=== PATIENT | female | born 1945 | race Caucasian/White ===

== ENCOUNTER → 2023-12-20 10:41 | Outpatient (REF) | payer MEDICARE, OTHER, SELFPAY ==
[2023-12-20 15:10] LABS: % Basophils 0.9 % (0-2); % Eosinophils 2.8 % (0-6); % Immature Granulocytes 0.5 % (0-0.5); % Lymphocytes 19.7 % (20.5-51.1); % Monocytes 6.4 % (1.7-9.3); % Neutrophils 69.7 % (42.2-75.2); Absolute Basophils 0.1 10^3/uL (0-0.2); Absolute Eosinophils 0.2 10^3/uL (0-0.7); Absolute Lymphocytes 1.5 10^3/uL (1.2-3.4); Absolute Monocytes 0.5 10^3/uL (0.1-0.6); Absolute Neutrophils 5.2 10^3/uL (1.4-6.5); Hematocrit 44.2 % (37.0-47.0); Hemoglobin 14.9 g/dL (12.0-16.0); Mean Corp Hgb Conc. 33.7 g/dL (33.0-37.0); Mean Corpuscular Hgb 32.9 pg (27.0-31.0); Mean Corpuscular Volume 97.6 fL (81.0-99.0); Mean Platelet Volume 10.2 fL (7.4-10.4); Nucleated Red Blood Cells % 0 %; Platelet Count 256 10^3/uL (130-400); Red Blood Cell Count 4.53 10^6/uL (4.20-5.40); Red Cell Dist. Width 13.7 % (11.5-14.5); White Blood Cell Count 7.5 10^3/uL (4.8-10.8)
[2023-12-20 15:30] LABS: ALT (SGPT) 14 U/L (0-35); AST (SGOT) 26 U/L (14-36); Alkaline Phosphatase 77 U/L (38-126); Blood Urea Nitrogen 16 mg/dl (7-17); Calcium 9.9 mg/dl (8.4-10.2); Carbon Dioxide 26 mmol/L (22-30); Chloride 104 mmol/L (98-107); Glucose 99 mg/dl (70-99); Potassium 4.6 mmol/L (3.5-5.1); Sodium 138 mmol/L (135-145); Total Protein 6.6 g/dl (6.3-8.2); Uric Acid 6.5 mg/dl (2.5-6.2); eGFR > 60.00
[2023-12-20 15:58] LABS: TSH Reflex To Free T4 1.97 uIU/ml (0.47-4.68)
== END ==
LOC: WDC 10:41
PROVIDERS: ATTENDING PHYSICIAN Student in an Organized Health Care Education/Training Program
DX: Z12.31 Encounter for screening mammogram for malignant neoplasm of breast (principal); R42 Dizziness and giddiness; R53.83 Other fatigue; R01.1 Cardiac murmur, unspecified; Z87.39 Personal history of other diseases of the musculoskeletal system and connective tissue
CPT/HCPCS: 36415; 80053; 84443; 84550; 85025

== ENCOUNTER → 2024-01-10 14:24 | Outpatient (REF) | payer MEDICARE, OTHER, SELFPAY | LOC: RCS 14:24 | PROVIDERS: ATTENDING PHYSICIAN Student in an Organized Health Care Education/Training Program | DX: R42 Dizziness and giddiness (principal) | CPT/HCPCS: 93306 ==

== ENCOUNTER → 2025-02-03 17:39 | Outpatient (REF) | payer MEDICARE, OTHER, SELFPAY | LOC: RAD 17:39 | PROVIDERS: ATTENDING PHYSICIAN Internal Medicine | DX: S90.02XA Contusion of left ankle, initial encounter (principal); S86.912A Strain of unspecified muscle(s) and tendon(s) at lower leg level, left leg, initial encounter; W19.XXXA Unspecified fall, initial encounter | CPT/HCPCS: 73564; 73610 ==

== ENCOUNTER 2025-04-28 16:40 | Inpatient (IN) | payer MEDICARE, OTHER, SELFPAY ==
[2025-04-28] VITALS (10 sets, daily range): BP systolic 150–189; BP diastolic 74–140
--- NOTE | 2025-04-28 14:24 | ED.MUSCINJ ---
HPI-Injury
<Nakia Valentine EXPERIENCE DESIGN DIRECTOR - Last Filed: 04/28/25 15:57>
General
Chief Complaint: Fall
Source: patient and spouse
Exam Limitations: none
Time Seen by Provider: 04/28/25 14:00
Nursing documentation reviewed up to this point in time: agreed with
History of Present Illness-Injury
Is this injury a work related problem?: No
Is pt an associate of [facility]?: No
Initial Injury comments:
Patient seen emergency department after trip and fall in the store today. She states she was trying to get her cane out of the cart and tripped on the carpet. She reports hitting her head on the ground. No LOC. She denies taking any blood
thinners. she complains of pain to her right hip. Brought to the emergency department by spouse. Incident occurred just BUSINESS CONSULTANT.
Past History
<Nakia Valentine EXPERIENCE DESIGN DIRECTOR - Last Filed: 04/28/25 15:57>
Past History
ED Past Medical History: GERD and HTN
ED Past Surgical History: Appendectomy, Bowel resection, Gynecological, Orthopedic and Tonsilectomy
Social History
Tobacco: Former smoker
Personal:
Living: with family
Employment: Retired
Review of Systems
<Nakia Valentine EXPERIENCE DESIGN DIRECTOR - Last Filed: 04/28/25 15:57>
Review of Systems
Allergies reviewed?: Yes
All Other Systems: ROS reviewed and negative except as documented in HPI and ROS
Constitutional: Reports no symptoms
EENT: Reports no symptoms
Respiratory: Reports no symptoms
Cardiac: Reports no symptoms
ABD/GI: Reports no symptoms
: Reports no symptoms
Musculoskeletal: Reports joint pain (Pain to right hip)
Skin: Reports no symptoms
Neurological: Reports no symptoms
Psychiatric: Reports no symptoms
Musculoskeletal Injury Exam
<Nakia Valentine NP - Last Filed: 04/28/25 15:57>
Musculoskeletal Injury Exam
Right Hip:
Pain with Movement?: Moderate
Tender to palpation?: Moderate
Soft tissue swelling?: None
External deformity and angulation?: None
Joint effusion?: None
Contusion?: Moderate
Hematoma-local bleeding into tissue?: None
Strain- Sprain- Tear (Connective tissue injury)?: Moderate
Crepitus with movement?: No
Joint instability?: No
Malalignment/deformity?: No
Range of motion: Limited
Distal skin color and temperature: normal-warm & good color
Capillary Refill: normal
Normal distal neurovascular exam?: Yes
Peripheral Pulses: posterior tibial (right): 3+ and dorsalis pedis (right): 3+
Phy Exam
<Nakia Valentine NP - Last Filed: 04/28/25 15:57>
General Physical Exam
General Presentation: moderate distress
General age: appears stated age
General Skin: warm and dry
General Habitus: normal
General Mental: alert
Cardiovascular Exam
Cardiovascular Exam: regular rate/rhythm and no edema
Pulmonary Exam
Pulmonary Exam: no respiratory distress and chest non tender
Gastrointestinal Exam
Gastrointestinal Exam: non tender and soft
Neurological Exam
Neurological Exam: alert, oriented x3, CN II-XII intact, no motor deficits, no sensory deficits and speech normal
Musculoskeletal Exam
Musculoskeletal Exam: neuro vasc intact and other (Pain to right anterior hip. No bruising or swelling noted. Leg is not shortened, it is not radiating. Unable to move her leg due to pain)
Skin Exam
Skin Exam: normal color, warm/dry and no rash
Psychiatric Exam
Psychiatric Exam: normal mood/affect
Injury Course
<Nakia Valentine NP - Last Filed: 04/28/25 15:57>
Orders/Labs/Results
Orders:
Orders
04/28/25 13:49
CT Head W/o Iv Contrast Urgent
Comment:
Reason For Exam: fall hit head
Hip, Right 2-3 Views [CR Hip - RT w/wo Pel 2-3 Vw*] Urgent
Comment:
Reason For Exam: right hip pain
Include a pelvis x-ray?: Yes
04/28/25 14:42
Urinalysis Reflex To Culture Urgent
HYDROmorphone [Dilaudid] 0.25 mg IV NOW STA
Ondansetron Injectable [Zofran] 4 mg IV NOW STA
04/28/25 15:18
Complete Blood Count/With Diff Urgent
Comprehensive Metabolic Panel Urgent
Abnormal Lab Results
04/28/25
15:18
WBC 12.2 H 10^3/uL
(4.8-10.8)
RBC 3.99 L 10^6/uL
(4.20-5.40)
MCV 102.5 H fL
(81.0-99.0)
MCH 33.3 H pg
(27.0-31.0)
MCHC 32.5 L g/dL
(33.0-37.0)
Abs Immat Gran (auto) 0.1 H 10^3/uL
(0-0.05)
Absolute Neuts (auto) 10.4 H 10^3/uL
(1.4-6.5)
Absolute Lymphs (auto) 0.9 L 10^3/uL
(1.2-3.4)
Absolute Monos (auto) 0.7 H 10^3/uL
(0.1-0.6)
Immature Gran % 0.7 H %
(0-0.5)
Neutrophils % 85.3 H %
(42.2-75.2)
Lymphocytes % 7.5 L %
(20.5-51.1)
Glucose 113 H mg/dl
(70-99)
04/28/25 15:18
04/28/25 15:18
<Chichi Blayne, DO - Last Filed: 04/28/25 15:57>
Orders/Labs/Results
Orders:
Orders
04/28/25 13:49
CT Head W/o Iv Contrast Urgent
Comment:
Reason For Exam: fall hit head
Hip, Right 2-3 Views [CR Hip - RT w/wo Pel 2-3 Vw*] Urgent
Comment:
Reason For Exam: right hip pain
Include a pelvis x-ray?: Yes
04/28/25 14:42
Urinalysis Reflex To Culture Urgent
HYDROmorphone [Dilaudid] 0.25 mg IV NOW STA
Ondansetron Injectable [Zofran] 4 mg IV NOW STA
04/28/25 15:18
Complete Blood Count/With Diff Urgent
Comprehensive Metabolic Panel Urgent
Abnormal Lab Results
04/28/25
15:18
WBC 12.2 H 10^3/uL
(4.8-10.8)
RBC 3.99 L 10^6/uL
(4.20-5.40)
MCV 102.5 H fL
(81.0-99.0)
MCH 33.3 H pg
(27.0-31.0)
MCHC 32.5 L g/dL
(33.0-37.0)
Abs Immat Gran (auto) 0.1 H 10^3/uL
(0-0.05)
Absolute Neuts (auto) 10.4 H 10^3/uL
(1.4-6.5)
Absolute Lymphs (auto) 0.9 L 10^3/uL
(1.2-3.4)
Absolute Monos (auto) 0.7 H 10^3/uL
(0.1-0.6)
Immature Gran % 0.7 H %
(0-0.5)
Neutrophils % 85.3 H %
(42.2-75.2)
Lymphocytes % 7.5 L %
(20.5-51.1)
Glucose 113 H mg/dl
(70-99)
04/28/25 15:18
04/28/25 15:18
<Nakia Valentine NP - Last Filed: 04/28/25 15:57>
*Radiology
Radiology exam reviewed: radiology read reviewed
*Pulse Oximetry
SaO2: 94
Oxygen Mode of Delivery: Room air
Patient hypoxic: no
*Critical Care Note
Total Time (30-74mins, 75-104mins- exclusive of procedures): Not Applicable
<Nakia Valentine NP - Last Filed: 04/28/25 15:57>
Update Note
Update Note:
Patient seen emergency department after a trip and fall at the store today. Complains of pain to right hip, unable to bear weight. X-ray confirms right hip fracture. Dr. Castro consulted and will plan for surgery tomorrow. This was discussed
with patient and family. Patient will be admitted to the hospitalist service.
ED Attending Note
<Nakia Valentine NP - Last Filed: 04/28/25 15:57>
-
Portions of this chart may have been created with voice recognition software.� Occasional wrong word or��sound alike� substitutions may have occurred due to the inherent limitations of voice recognition software.
<Chcihi Cisneros DO - Last Filed: 04/28/25 15:57>
ED Attending Note
Patient seen and examined by attending physician: Yes
I performed the substantive portion of visit, reviewed & personally made and approve the management plan that is documented in note by myself or LOUIS.: Yes
I performed a history and physical exam of patient and discussed management with resident, I reviewed resident's note and agree with documented findings and plan of care.: Yes
ED Attending Note:
80-year-old female presenting to the emergency department after a fall at the store prior to arrival. Patient arrives to the hospital with right hip pain. Does note that she also struck her head. She has not any blood thinners. She has not been
able to ambulate since the fall. Family notes issues with ambulation at baseline, often has to use a cane. Patient denies numbness or tingling to her leg. Denies any additional injuries. Vital signs are significant for high blood pressure.
On exam, patient is in no acute distress. No signs of head trauma. Awake, alert, oriented. Slight shortening of the right lower extremity comparison to the left with limited range of motion secondary to pain. Distal sensation and pulses intact.
Patient seen and examined by nurse practitioner prior to my assessment, with CT of the head obtained as well as x-ray of the right hip. CT brain negative, however x-ray of the hip is concerning for acute hip fracture. Case discussed with
orthopedics. Plan for operative management. Family is aware as well as patient. Plan for admission
Discharge Plan
Departure
Patient Disposition: Admit
Date of Disposition: 04/28/25
Time of Disposition: 15:30
Presentation/result/management discussed w/ accepting MD/DO: Hospitalist
Patient with high blood pressure during this ER visit?: No
Condition: Fair
Covid-19: Not Applicable
Discharge Problem:
Closed fracture of right hip
Prescriptions:
No Action
pantoprazole 40 MG tablet,delayed release (DR/EC)
40 mg PO DAILYPRN PRN (Reason: GERD)
amoxicillin-pot clavulanate 1 TABLET tablet
1 tab PO Q12 12 Days Qty: 24 0RF
Rx Instructions:
next dose 11/08 PM
Referrals:
UNKNOWN - PT DOES,NOT KNOW [Family Provider]
Interventions
Interventions:
*Risk Screen - Suicide Last Done: 04/28/25 13:46
*General Assessment Last Done: 04/28/25 13:46
*Neglect/Abuse Screening Last Done: 04/28/25 13:46
*ED- Fall Risk Assessment Last Done: 04/28/25 13:46
*ED COVID-19 Vaccine History Last Done: 04/28/25 13:46
*ED Influenza Vaccine History Last Done: 04/28/25 13:46
ED-Musculoskeletal Assessment Last Done: 04/28/25 14:03
ED- Neurological Assessment Last Done: 04/28/25 14:03
ED-Skin Assessment Last Done: 04/28/25 14:03
Discharge Date and Time
Print Language: CAMBODIAN
[2025-04-28] MEDS: DILAUDID 0.25 MG IV (15:16)
[2025-04-28] MEDS: ZOFRAN 4 MG IV ×2 (15:16→22:03)
[2025-04-28 15:50] LABS: ALT (SGPT) 18 U/L (0-35); AST (SGOT) 25 U/L (14-36); Albumin 3.8 g/dl (3.5-5.0); Alkaline Phosphatase 92 U/L (38-126); Blood Urea Nitrogen 13 mg/dl (7-17); Calcium 9.7 mg/dl (8.4-10.2); Carbon Dioxide 27 mmol/L (22-30); Chloride 107 mmol/L (98-107); Estimated Creatinine Clearance 58 ml/min; Glucose 113 mg/dl (70-99); Potassium 4.4 mmol/L (3.5-5.1); Sodium 138 mmol/L (135-145); Total Protein 6.4 g/dl (6.3-8.2); eGFR > 60.00
[2025-04-28 15:53] LABS: Hematocrit 40.9 % (37.0-47.0); Hemoglobin 13.3 g/dL (12.0-16.0); Mean Corp Hgb Conc. 32.5 g/dL (33.0-37.0); Mean Corpuscular Volume 102.5 fL (81.0-99.0); Nucleated Red Blood Cells % 0 %; Platelet Count 246 10^3/uL (130-400); Red Cell Dist. Width 13.2 % (11.5-14.5)
--- NOTE | 2025-04-28 16:04 | HPS.HSE ---
Addendum entered and electronically signed by Debra Jimenez MD 04/28/25 18:40:
Attestation: Patient was seen and examined by me, case was discussed with Dr. Crespo, I reviewed her H&P and agree with the findings as documented except as listed below.
80 F w/HTN, GERD, anxiety/depression, daily alcohol use, p/w hip pain after mechanical fall. Patient hit her head, denies LOC or prodromal symptoms. Found to have acute right hip fracture.
Denies history of CAD, lung disease, CVA, VTE, DM, CKD, CHF.
BP 172/95, other VSS. Patient is wearing 2 L O2, currently O2 sat 94%.
Labs WBC 12.2, MCV 102.5, GLU 113, otherwise WNL
CTh: WNL
Hip x-ray: There is an acute right subcapital hip fracture. There is 1.7 cm superior displacement of the femoral shaft.. There is mild bilateral SI joint sclerosis. There is moderate sclerosis of the acetabulum bilaterally.
PE�
Gen: In distress from pain
HEENT: PERRLA, EOMI, MMM, neck supple
Cards: RRR, +murmur
Resp: Lungs CTAB, no W/R/R
GI: soft, NT/ND/NABS
MSK: No edema, right leg foreshortened, tender, able to move feet and toes, distal pulses intact
Skin: warm and dry, no rash, ulcer or lesions
Heme: No LAD
Psych: Calm
Neuro: AAOx3
A/P:
Right hip subcapital displaced fracture�plan for OR with orthopedics in a.m. N.p.o. after midnight. Pain control with IV Dilaudid and p.o. oxycodone. Monitor for over�sedation
Preoperative risk stratification: RCRI 0. Check EKG for baseline. Otherwise can proceed to OR with no further testing. NSQIP shows risk for delirium due to alcohol use, STOP-BANG 6, high risk for NIMCO, will need close monitoring in PACU, possibly
CPAP.
HTN: BP uncontrolled. Noncompliant with home HTN meds, losartan 25 tonight, hold in a.m., resume postop when needed
Review outpatient PCP records for home meds
Alcohol use: Risk for withdrawal, alcohol withdrawal protocol ordered. Thiamine/folate.
Suspected NIMCO: Continue oxygen as needed, outpatient sleep study
Heart murmur: Check against outpatient PCP records, has echo 12/2023, normal LVEF, stage I diastolic dysfunction, no valvular disease.
DNR
Original Note:
Family Physician
-
Family Physician: Carlene Gallegos MD, PhD
Chief Complaint
-
Mechanical fall, right hip pain
History of Present Illness
80-year-old female with essential hypertension not on any medications, anxiety/depression not compliant with medications, alcohol use disorder, former smoker, GERD presents to the ER for evaluation of mechanical fall. In the afternoon patient tried
to find her cane to get up and walk, and the edge of the cane stand was caught under the carpet and she tripped on the carpet and and fell down on the floor. She admits to fall forward and hitting her head, this is her fifth fall in the last 1
year, and family states that she was recommended to use walker following third fall but patient was noncompliant. She complains of chronic low back pain for which she takes ibuprofen about 2-3 times a day at 400 to 600 mg, currently she does not
have any acute low back pain, she did not have urinary retention, bowel or bladder incontinence, perianal anesthesia. She denies syncope or near syncopal episodes in the past or today.
Her baseline physical activity is less than 3 METS and she is partially dependent for her activities of daily living at home.
Medical History
Past Medical History
Past Medical History: Reports GERD, HTN and Other (Anxiety, alcohol use disorder)
Past Surgical History: Reports Other
Social History
Tobacco: Former Smoker (63-awtx-teim smoking history, quit smoking 6 years ago)
Alcohol: Daily (2 hard glasses of vodka a day every day, sometimes up to 3.)
Drug: None
Personal:
Living: With Family
Employment: Retired
Family History
Family History: Not pertinent
Allergies / Home Medications
Allergies reflects when Allergies were last updated in [facility].
Home Medications with original date entered in [facility]
Allergy/Medication List:
Allergies
Allergy/AdvReac Type Severity Reaction Status Date / Time
aspirin Allergy Stomach Verified 11/05/20 18:51
pain
azithromycin (From Zithromax) Allergy Unknown Verified 11/05/20 18:51
erythromycin base Allergy 'very Verified 11/05/20 18:51
(Erythromycin Base) sick',
vomiting
Sulfa (Sulfonamide Allergy Rash Verified 11/05/20 18:51
Antibiotics)
(Sulfa(Sulfonamide
Antibiotics))
Home Medications
pantoprazole 40 mg tablet,delayed release 40 mg PO DAILYPRN PRN GERD 02/03/25
Sertraline space 25 mg tablet, delayed release p.o. daily for anxiety-02/03/2025.
Review of Systems
-
History Source: Patient
A 12 point ROS was completed and negative except as noted: Yes
Constitutional: Reports Fatigue
EENT: Reports No Symptoms
Respiratory: Reports No Symptoms
Cardiac: Reports No Symptoms
Abdomen/GI: Reports No Symptoms
: Reports No Symptoms
Musculoskeletal: Reports No Symptoms
Skin: Reports No Symptoms
Neurological: Reports No Symptoms
Endocrine: Reports No Symptoms
Hematologic/Lymphatic: Reports No Symptoms
Psych: Reports No Symptoms
Physical Exam
Vital Signs
Vital Signs
Temp Pulse Resp BP Pulse Ox
98.5 F 78 16 172/95 94
04/28/25 13:46 04/28/25 13:46 04/28/25 14:00 04/28/25 13:46 04/28/25 14:25
Physical Exam
General: No Apparent Distress, Comfortable and Other (On 2 L nasal cannula flow.)
HEENT: Moist mucous membranes and PERRLA
Respiratory: Clear; No Wheezes, Rales, Rhonchi or Crackles
Cardiac: S1/S2, Regular Rhythm and Murmur (Systolic 2/6 best heard in aortic area.); No JVD, Carotid Bruits or HJR
GI: Soft, Non Tender, Non Distended and Normal Bowel Sounds
Musculoskeletal: No Clubbing, No Cyanosis and No Edema
Neuro: AO x 3 and No Motor Deficits
Psych: Calm
Laboratory Results
-
04/28/25 15:18
04/28/25 15:18
Laboratory Results
Total Bilirubin 1.0 mg/dl (0.2-1.3) 04/28/25 15:18
AST 25 U/L (14-36) 04/28/25 15:18
ALT 18 U/L (0-35) 04/28/25 15:18
Alkaline Phosphatase 92 U/L (38-126) 04/28/25 15:18
Data Reviewed
-
Ultrasound: Image Personally Visualized and interpreted and Discussed with Physician
Lab Data: Labs Reviewed by me, Discussed with Physician, Discussed with Patient and Discussed with Family
Impression/Plan
-
IMPRESSION: 80-year-old female with PMHx significant for essential hypertension, GERD, anxiety/depression, alcohol use disorder, ambulatory dysfunction, baseline capacity less than 3 METS with partial dependence for activities of daily living
presents to the ER for evaluation of a mechanical fall. She is diagnosed with displaced subcapital right femur fracture
PLAN:
# Right displaced subcapital femur fracture-
s/p mechanical fall, no diagnosis of osteoporosis.
Orthopedics consulted, plan for hip surgery (unsure of the planned procedure yet)
IV Dilaudid and oral oxycodone for pain as needed.
Gentle hydration, EKG for preop evaluation.
Less than 3 METS at baseline.
NSQIP with geriatric outcomes-high risk for postop delirium
Monitor for delirium postop
Outcomes-low risk procedure given minimal comorbidities.
PT and OT consulted.
# Alcohol use disorder-
Last drink in the p.m. yesterday
Has never stopped drinking alcohol, no withdrawals or intoxication in the past.
Started the patient on MSAS protocol. Check magnesium, phosphorus, GGT and blood alcohol levels.
IV diazepam as needed per protocol.
Loading dose of thiamine and folate followed by oral thiamine and folate supplementation ordered.
B CARES consult placed per family's request.
# Hypoventilation likely secondary to pain, currently on 2 L nasal cannula flow.
Wean off oxygen as tolerated, incentive spirometry to prevent postop atelectasis.
Family reported snoring to my supervising attending, concern for undiagnosed NIMCO
Monitor postop.
# Essential hypertension-
Not on any medications, patient discontinued taking her amlodipine on outpatient about 2 years ago.
Average blood pressures in outpatient office 130-140/70-90
Started patient on losartan 25 mg with holding parameters.
Hold losartan on day of surgery (for anesthesia)
# Hyperglycemia on admission-
Check hemoglobin A1c in the a.m.
No history of diabetes.
# Macrocytosis without anemia-
Likely secondary to chronic alcohol use
Folate and thiamine supplementation.
# Leukocytosis-
Likely reactive from inflammation.
# GERD-
On longstanding Protonix outpatient.
Continue Protonix
# Anxiety/depression-
Coping with alcohol
Not compliant with sertraline.
Held sertraline as patient never took it.
# DVT prophylaxis-
Sequential compression devices
# CODE STATUS-
DNR.
Outpatient workup-echocardiogram-
01/10/2024-
Normal left ventricular size, wall thickness and systolic function.
LV ejection fraction is 66% by Miller's method of discs.
Stage I diastolic dysfunction suggestive of abnormal relaxation.
Normal right ventricular size and function.
No significant valvular disease.
No prior study available for comparison.
[2025-04-28] MEDS: DILAUDID 0.5 MG IV ×2 (16:48→22:04)
[2025-04-28] MEDS: ROXICODONE 10 MG PO (19:26)
[2025-04-28] MEDS: TUMS CHEWABLE TABLET 200 MG PO (19:50)
[2025-04-28 19:51] LABS: Urine Character Clear (Clear)
[2025-04-28 20:09] LABS: Urine Urothelial Cell 0-2 /LPF (FEW); Urine White Cell 0-2 /HPF (0-5)
--- NOTE | 2025-04-28 20:40 | PTCARENOTE ---
Pt admitted to 2107 from ED. Pulled over to bed x 3. AAOX3, able to move all extremities. Pt's 2 daughters at bedside. After turning and repositioning pt c/o indigestion and then vomited approx 200 cc brown bile. WAX PUMPER notified for zofran, med given.
prn dilaudid given for 8/10 R hip pain. PW in place for incontinence. MSAS procotol initiated, score 2-3 for nausea/vomiting and tachycardia. Bed alarm on/ active. Call landa within reach.
[2025-04-28] MEDS: THIAMINE INJECTION 200 MG IV (22:12)
[2025-04-28 22:19] LABS: INR 1.00; PT 13.7 Sec (11.4-14.6)
[2025-04-28 22:23] LABS: APTT 25.7 Sec (23.4-35.0); GGTP 25 U/L (12-43); Magnesium 1.6 mg/dl (1.6-2.3)
[2025-04-28] MEDS: FOLVITE PO (22:39)
[2025-04-28] MEDS: FOLVITE 50.2 MG IV (22:46)
[2025-04-29] VITALS (17 sets, daily range): BP systolic 113–177; BP diastolic 69–114
--- NOTE | 2025-04-29 01:02 | PTCARENOTE ---
Pt blood pressure remains high 177/114. HR 100-110s at times. CHRISTI Keith notified. order in for one time dose losartan. med given
[2025-04-29] MEDS: DILAUDID 0.5 MG IV ×4 (01:23→18:10)
[2025-04-29] MEDS: COZAAR 25 MG PO (01:38)
--- NOTE | 2025-04-29 07:00 | W.PN.UPDATE ---
Addendum entered and electronically signed by Abdias Castro MD 04/29/25 15:14:
Patient seen and examined this AM and again this morning with multiple family members present. Explained proposed surgery. Risks, benefits, complications and postop expectations were discussed. The procedure itself was discussed in detail, all
questions were answered. and informed consent was obtained. We discussed that surgery would be on 04/29/2025 as the OR permitted.
Original Note:
Update Note
Progress Note Update
Full orthopedic consult dictated:
Patient unfortunately sustained a displaced right femoral neck fracture and is going to require hemiarthroplasty later today. Surgical location marked and surgical consent signed by patient. She will remain n.p.o., Ancef on-call to the operating
room along with iodine/TXA irrigation as well. Type and screen ordered.
[2025-04-29] MEDS: FOLVITE 1 MG PO (08:17)
[2025-04-29] MEDS: PROTONIX 40 MG PO (08:17)
[2025-04-29] MEDS: THIAMINE INJECTION 200 MG IV ×2 (08:18→19:36)
--- NOTE | 2025-04-29 08:18 | W.PN.HOSP.TC ---
Today's Communication/Plan
-
morning labs
A1C 5%
OR today
monitor post op for delirium and sleep apnea. PT OT postop
Assessment / Plan
Assessment / Plan
80F with HTN, GERD, anxiety/depression, alcohol use disorder, frequent falls, p/w mechanical fall, found to have displaced subcapital right femur fracture.
PLAN:
# Right displaced subcapital femur fracture-
s/p mechanical fall, no diagnosis of osteoporosis.
Orthopedics consulted, plan for hip arthroplasty
IV Dilaudid and oral oxycodone for pain as needed.
reviewed EKG - NSR with no ischemic changes.
high risk for NIMCO monitor in PACU post op, also monitor for postop delirium.
PT and OT post op
# Alcohol use disorder-
Last drink night before admission
Has never stopped drinking alcohol, no withdrawals or intoxication in the past.
Started the patient on MSAS protocol.
IV diazepam as needed per protocol. Far has not received any.
Loading dose of thiamine and folate followed by oral thiamine and folate supplementation ordered.
B CARES consult placed per family's request.
# Hypoventilation likely secondary to pain/NIMCO, currently on 2 L nasal cannula flow.
Wean off oxygen as tolerated, incentive spirometry to prevent postop atelectasis.
STOP-BANG score 6 (high risk NIMCO) - needs outpt sleep study
Monitor postop.
# Essential hypertension-
Not on any medications, patient discontinued taking her amlodipine on outpatient about 2 years ago.
Average blood pressures in outpatient office 130-140/70-90
Started patient on losartan 25 mg with holding parameters.
Hold losartan on day of surgery (for anesthesia)
# Hyperglycemia on admission-
check hemoglobin A1c
No history of diabetes.
# Macrocytosis without anemia-
Likely secondary to chronic alcohol use
Folate and thiamine supplementation.
check CBC -persists
# Leukocytosis-
Likely reactive from inflammation.
Check repeat CBC�WNL, WBC improved to 11.3
# GERD-
On longstanding Protonix outpatient.
Continue Protonix
# Anxiety/depression-
Coping with alcohol
Not compliant with sertraline.
Held sertraline as patient never took it.
# DVT prophylaxis-
Sequential compression devices then lovenox post op
# CODE STATUS-
DNR
Anticipated Discharge: 24 - 48 hours
Subjective/Interval History
-
Date of Service: April 29, 2025
Patient seen in preop area, states she feels a little bit drowsy from the pain meds but otherwise denies any issues.
Objective Data
-
Labs:
Laboratory Results
04/28/25
21:59
PT 13.7
INR 1.00
APTT 25.7
Vital Signs:
Vital Signs
Temp Pulse Resp BP Pulse Ox
97.9 F 110 18 159/84 97
04/29/25 07:45 04/29/25 07:45 04/29/25 07:45 04/29/25 07:45 04/29/25 07:45
I&O
04/28/25 04/29/25 04/30/25
06:59 06:59 06:59
Output Total 150 / 150
Balance -150 / -150
Review of Systems
-
All other systems: Reviewed and negative
Physical Exam
-
General: No Apparent Distress
HEENT: Moist Mucous Membranes, Anicteric and PERRLA
Respiratory: Clear to Auscultation; Negative Wheezes, Rales or Rhonchi
Cardiac: Regular Rhythm, S1/S2 and Murmur; Negative Rub or Gallop
GI: Soft, Nontender, Nondistended and Normal Bowel Sounds
Musculoskeletal: No Edema
Skin: Warm and Dry; Negative Rash, Ulcers or Lesions
Neuro: Awake and AO x 3
Hematologic / Lymphatic: No Lymphadenopathy
Psych: Calm
Data Reviewed
-
Diagnostic Radiology: Image personally visualized and interpreted (Displaced right hip fracture)
Labs: Labs Reviewed by me
[2025-04-29 08:40] LABS: Blood Urea Nitrogen 17 mg/dl (7-17); Calcium 9.3 mg/dl (8.4-10.2); Carbon Dioxide 28 mmol/L (22-30); Chloride 104 mmol/L (98-107); Estimated Creatinine Clearance 51 ml/min; Glucose 97 mg/dl (70-99); Hematocrit 40.5 % (37.0-47.0); Hemoglobin 13.4 g/dL (12.0-16.0); Mean Corp Hgb Conc. 33.1 g/dL (33.0-37.0); Mean Corpuscular Volume 104.7 fL (81.0-99.0); Platelet Count 194 10^3/uL (130-400); Potassium 4.5 mmol/L (3.5-5.1); Red Cell Dist. Width 13.1 % (11.5-14.5); Sodium 136 mmol/L (135-145); eGFR > 60.00
[2025-04-29 09:18] LABS: Glycohemoglobin (HgbA1c) 5.0 % (4.0-5.6)
[2025-04-29] MEDS: DILAUDID 0.25 MG IV (15:29)
--- NOTE | 2025-04-29 16:24 | CM ---
Several attempts made to complete IA today, however pt was in the OR for repair of fx hip. Still in PACU at this time.
[2025-04-29] MEDS: SENOKOT 17.2 MG PO (19:36)
[2025-04-29] MEDS: COLACE 100 MG PO (19:36)
[2025-04-29] MEDS: ANCEF 5 IV (19:36)
[2025-04-29] MEDS: ASPIR LOW (ENTERIC COATED) 81 MG PO (19:36)
[2025-04-29] MEDS: BACTROBAN 2% OINTMENT 1 APPLIC NASAL (19:36)
[2025-04-30] VITALS (12 sets, daily range): BP systolic 110–149; BP diastolic 42–106; PULSE 101
[2025-04-30 00:32] LABS: Glucose - Point of Care 128 mg/dl (70-99)
--- NOTE | 2025-04-30 00:57 | PTCARENOTE ---
Went to do 0000 neurovascular check and q2 turn and pt had poor effort. Pt also with change in mental status, slurred speech, and unable to hold R arm in air. Pt also not able to follow commands. OIL DISPATCHER and stroke alert called and initiated at 0020.
EKG showed a. fib w/ RVR, pr in the 160-170s. Physical copy in chart. Pt sent for brain CT, Head/Neck CTA, and Head CT. Pt being transferred to IVU. Report given to ABHISHEK Medina.
[2025-04-30 01:02] LABS: Hematocrit 42.7 % (37.0-47.0); Hemoglobin 13.6 g/dL (12.0-16.0); Mean Corp Hgb Conc. 31.9 g/dL (33.0-37.0); Mean Corpuscular Volume 105.7 fL (81.0-99.0); Platelet Count 209 10^3/uL (130-400); Red Cell Dist. Width 13.1 % (11.5-14.5)
[2025-04-30] MEDS: CARDIZEM 5 MG IV (01:17)
[2025-04-30 01:21] LABS: Blood Urea Nitrogen 26 mg/dl (7-17); Calcium 9.0 mg/dl (8.4-10.2); Carbon Dioxide 24 mmol/L (22-30); Chloride 103 mmol/L (98-107); Estimated Creatinine Clearance 41 ml/min; Glucose 153 mg/dl (70-99); Magnesium 1.8 mg/dl (1.6-2.3); Potassium 4.7 mmol/L (3.5-5.1); Sodium 136 mmol/L (135-145); eGFR 56.25
--- NOTE | 2025-04-30 01:26 | W.PN.UPDATE ---
Update Note
Progress Note Update
0026 stroke alert called
RN reports patient with confusion, slurred speech, Right side weakness and unable to follow commands.
INSURANCE COORDINATOR at bedside. Patient is AAO to name and place, unable to tell her age or . Right arm drift noted, mild slurred speech. following commands, NIH 2 MSAS 2
RN states last known normal 11PM. She was able to move her arms and legs. Right leg was limited due to post surgery, able to follow commands at that time.
HR also noted to be irregular in 150's 108/64 RR 20 BS 128, denies any chest pain or shortness of breath or palpitation. Denies lightheaded, dizziness.
EKG Afib with RVR Trend Trop, TSH, T4
CT head stroke, CT head/neck ang stroke, CT brain perf stroke was ordered.
Spoke with Neurologist transportation assistant at [facility].
Images read
advised to give ASA 325mg POx1, Plavix 300mg after talking to Surgical team, advised permissive HTN SBP>220 if possible, Neurologist is aware and agrees that we need to treat Afib with RVR HR 150's at present, MRI Brain
Orthopedic transportation assistant made aware, agrees with Plavix and ASA.
ASA, Plavix and NIH scale ordered.
Patient is in IVU
Consult Infirmary Attendant
Consult Neurologist
[2025-04-30] MEDS: ASPIRIN 325 MG PO (01:35)
[2025-04-30] MEDS: PLAVIX 300 MG PO (01:35)
[2025-04-30] MEDS: CARDIZEM 125 IV (01:35)
[2025-04-30 01:36] LABS: Troponin I 0.108 ng/ml
[2025-04-30 01:41] LABS: INR 1.12; PT 15.0 Sec (11.4-14.6)
[2025-04-30 01:42] LABS: APTT 31.4 Sec (23.4-35.0)
[2025-04-30 02:33] LABS: Urine Character Clear (Clear)
[2025-04-30 02:42] LABS: Urine Squamous Cell 16-20 /LPF (Few)
[2025-04-30 02:43] LABS: Urine Red Blood Cell 0-2 /HPF (0-2); Urine White Cell 0-2 /HPF (0-5)
[2025-04-30] MEDS: ROXICODONE 5 MG PO ×2 (03:58→17:41)
[2025-04-30] MEDS: ANCEF 5 IV (03:59)
--- NOTE | 2025-04-30 05:09 | PTCARENOTE ---
Pt rec'd post rapid from CT scan. Awake,alert oriented to name,place and year however pt was hallucinating ;seeing standing behind nursing and dogs in room. Right hip drsg intact. No weakness noted in right arm or slurred speech as noted
earlier during rapid. Afib on telemetry ht rates in 140's. Cardizem gtt started at 5 mg /hr. Pt converted at approx 0222 to sinus. Cardizem gtt continued. At 0355 pt was heard calling out c/o pain. Medicated with Roxicodone 5mg. Pt repositioned in
bed and looks restful at this time.
--- NOTE | 2025-04-30 07:52 | W.PN.ORTHO ---
Today's Communication / Plan
-
POD #1 s/p right hip hemiarthroplasty
-Stroke alert called overnight. Appreciate medical team's efforts in work up.
-PT/OT as medically able. Anterior THPs x 6 weeks.
-WBAT with walker.
-DVT prophylaxis per medical/neuro recommendations. Okay with Aspirin and Plavix from ortho standpoint.
-Dressing to remain in place x 1 week.
-[place] to be removed in 2 weeks.
-Appreciate case management efforts in d/c planning . will await recommendations based on PT.
-Will continue to follow.
Assessment
.
Distal Motor Intact: Yes
Dressing:
Clean, dry and intact.
Assessment:
POD #1 s/p right hip hemiarthroplasty
-Stroke alert called overnight. Appreciate medical team's efforts in work up.
-PT/OT as medically able. Anterior THPs x 6 weeks.
-WBAT with walker.
-DVT prophylaxis per medical/neuro recommendations. Okay with Aspirin and Plavix from ortho standpoint.
-Dressing to remain in place x 1 week.
-[place] to be removed in 2 weeks.
-Appreciate case management efforts in d/c planning . will await recommendations based on PT.
-Will continue to follow.
Plan
.
Surgery / Date: 04/29/2025 R hip hemiarthroplasty - Dr. Castro
DVT Prophylaxis: Aspirin and Other (Plavix)
Activity:
Out of bed.
PT/OT
Subjective
.
.:
Patient resting comfortably in bed on my arrival. She appears more alert and is able to state her name, , and location with less confusion. Still with difficulty staying on track with answering questions. Reports no pain in the hip at rest.
Overnight, did experience an episode of mental status change, confusion, right sided weakness and new onset atrial fibrillation. Stroke alert was called and CT scans performed. Neuro through [facility] was consulted and recommended Plavix and Aspirin
325 mg daily.
Vital Signs and Labs
.
Vital Signs and Labs:
Lab Results
04/30/25 00:30
04/30/25 00:30
Temp Pulse Resp BP Pulse Ox
97.8 F 106 14 134/77 94
04/29/25 23:00 04/30/25 05:00 04/29/25 23:00 04/30/25 03:25 04/29/25 23:00
PT 15.0 Sec (11.4-14.6) H 04/30/25 01:22
INR 1.12 04/30/25 01:22
Physical Exam
-
Right hip: dressing with mild strikethrough. Mild swelling. No tenderness to palpation about lateral hip. [place] and gentle ROM without pain. Calf is soft and non tender to palpation. N/v intact distally.
[2025-04-30] MEDS: FOLVITE 1 MG PO (08:59)
[2025-04-30] MEDS: BACTROBAN 2% OINTMENT 1 APPLIC NASAL ×2 (08:59→21:24)
[2025-04-30] MEDS: ASPIR LOW (ENTERIC COATED) 81 MG PO ×2 (08:59→21:24)
[2025-04-30] MEDS: PROTONIX 40 MG PO (08:59)
[2025-04-30] MEDS: SENOKOT 17.2 MG PO ×2 (08:59→21:24)
[2025-04-30] MEDS: THIAMINE INJECTION 200 MG IV ×2 (08:59→21:28)
[2025-04-30] MEDS: COLACE 100 MG PO ×2 (08:59→21:24)
--- NOTE | 2025-04-30 09:16 | CON.NEURO4 ---
Addendum entered and electronically signed by Robinson Hoffman MD 04/30/25 14:16:
The patient's name is Lisa Valero and her date of is 1945.
Today the patient was seen and examined. I also discussed the patient's assessment and the management plan with nurse practitioner Lillian Camargo. I agree with nurse practitioner Lillian Camargo's diagnosis and management plan. Given below is my
assessment and the management plan.
The patient is an 80 years old who had a right hip hemiarthroplasty done yesterday on 04/29/2025. Stroke alert was called overnight because of slurred speech and confusion noted right-sided weakness. She was found to be in new onset atrial
fibrillation during the event.
[place] telestroke was notified. Recommendation was to load with aspirin and Plavix.
Today the patient is alert and is oriented x 3, speech is back to her baseline and is normal, and she does not appear to be confused at this time. She has a chronic mild right arm weakness as per patient because of her previous stroke and strength
examination of the right lower extremity could not be done because of the recent surgery. The strength on the left in the left upper and lower extremities was grossly 5 out of 5. The cranial nerves II to XII are grossly intact.
The patient appears to have had a transient ischemic attack.
Recommend aspirin 81 mg daily, Plavix 75 mg daily and atorvastatin 40 mg daily. The patient was found to be in new atrial fibrillation with rapid ventricular rate. She will need to be on Eliquis 5 mg twice daily if is okay with cardiology and
orthopedic surgery. MRI is planned for today.
Will sign off. Please call if you have any question.
Original Note:
Consultation - Neurology 4
-
CONSULTING PHYSICIAN: Dr. Robinson Hoffman
REFERRING PHYSICIAN: CHRISTI Butterfield
DICTATED BY: CHRISTI Daley
DATE/TIME OF REQUEST: 04/30/2025
DATE/TIME OF CONSULTATION: 04/30/2025
Reason for Consultation: stroke alert
History of Present Illness:
This is an [age]-year-old female patient who presented to the ER on 04/28/2025 after a trip and fall. She did report hitting her head on the ground. There was no loss conscious. She did fracture right hip and required right hip hemiarthroplasty
which was completed yesterday (04/29/2025). Initial CT head unremarkable. Overnight stroke alert was called due to increased confusion and slurred speech as well as noted right sided weakness. Monitor did show new onset atrial fibrillation during
event.
CT head 04/30/2025
1. No intracranial hemorrhage or abnormal mass effect.
2. Moderate small vessel ischemic change, stable compared to prior CT.
3. Age indeterminate infarct within the right robertson radiata. Consider MRI brain for further evaluation, as clinically appropriate.
CTA head and neck 04/30/2025
No evidence of large vessel occlusion, or arterial dissection.
[place] telestroke was notified. Recommendation was to load with aspirin and Plavix.
Patient reported this morning that right upper extremity weakness may be chronic. She does admit to a previous stroke though we do not have any confirmation of this. She does drink alcohol daily.
Despite aspirin allergy she was given this. She has tolerated this well. The allergy is listed as abdominal pain. Speech seems back to baseline at this time. Right upper extremity weakness minimal.
Past History:
ED Past Medical History: GERD and HTN, depression, anxiety, previous stroke
ED Past Surgical History: Appendectomy, Bowel resection, Gynecological, Orthopedic and Tonsillectomy, right knee replacement, right hip arthroplasty 04/29/2025
Social History:
Tobacco: Former smoker
Alcohol: Daily (3 vodka drinks a day (1 bloody Lise in the am and 2 vodka with 7up and [place] in evening), 'a big bottle of vodka a week')
Personal:
Living: with family
Employment: Retired
Family History: non contributory
Allergies: see below
Home Medications: see below
Review of Symptoms:
Patient denies any fever, headache, chest pain, shortness of breath, GI or symptoms.
Vital Signs: see below
Physical Exam:
The patient is afebrile, heart sounds S1 and S2 are regular, and no dyspnea or SOB.
Neurologic Examination:
The patient is awake, alert and oriented x 2. She is able to follow commands and answer questions appropriately. There is no aphasia or dysarthria. On cranial nerve assessment, pupils are 3 mm bilateral, round and reactive to light and
accommodation. Visual rod are full. Extraocular movements are intact. Facial sensations are intact and bilaterally symmetrical, there is no facial asymmetry. Hearing is mildly reduced to normal conversation volume. Tongue palate and uvula are
midline. Sternocleidomastoid strengths are full bilaterally. Motor strength RUE 4/5 unable to test RLE d/t recent hip surgery are 5/5 Left upper and left lower extremities on medical research [place] scale. There is no drift or involuntary movement
noted. Sensation of light touch intact and bilaterally symmetrical. There was no extinction noted on double simultaneous stimulation. Coordination is intact by finger to nose bilaterally.
Lab Results: see below
Neuro Imaging:
CT head 04/30/2025
1. No intracranial hemorrhage or abnormal mass effect.
2. Moderate small vessel ischemic change, stable compared to prior CT.
3. Age indeterminate infarct within the right robertson radiata. Consider MRI brain for further evaluation, as clinically appropriate.
CTA head and neck 04/30/2025
No evidence of large vessel occlusion, or arterial dissection.
Impression:
LISA VALERO is a 80 year old F who has presented to the hospital after a fall on 04/28/2025 and required right hip hemiarthroplasty 04/29/2025. Overnight 04/30/2025 patient started with right sided weakness and speech changes. Stroke alert was
called. CT of the head was negative. No large vessel occlusion noted on CTA. She was noted to be in atrial fibrillation new onset during episode. Differential for patient presentation include TIA versus less likely acute small stroke. Other
differentials include toxic metabolic encephalopathy or withdrawal from alcohol.
Patient has the following risk factors for their symptoms: Age, hypertension, former smoker, possible previous stroke
IV Tenecteplase/IAT candidacy-low NIH, recent hip surgery
Recommendations:
-MRI of the brain without robel if possible given recent hip surgery, if not can repeat CT head
-check HgbA1c and lipid panel-pending
-start Atorvastatin daily
-Continue aspirin, will order daily Plavix to continue for now
-NIHSS and neurological checks per unit guidelines.
-Provide patient with a stroke education packet.
-PT/OT/ST evaluations.
-appreciate cardiology consultation, eventual plan for Eliquis
-continue Thiamine
Discussed patient care with patient, nursing and neurologist Dr. Hoffman.
Medication and Allergies
Home Medications
Home Medications
�Medication �Instructions �Recorded
pantoprazole 40 mg tablet,delayed 40 mg PO DAILYPRN PRN GERD 01/27/16
release
amoxicillin 875 mg-potassium 1 tab PO Q12 12 days #24 tabs 11/08/20
clavulanate 125 mg tablet
Allergies
Allergies
Allergy/AdvReac Type Severity Reaction Status Date / Time
aspirin Allergy Stomach Verified 11/05/20 18:51
pain
azithromycin (From Zithromax) Allergy Unknown Verified 11/05/20 18:51
erythromycin base Allergy 'very Verified 11/05/20 18:51
(Erythromycin Base) sick',
vomiting
Sulfa (Sulfonamide Allergy Rash Verified 11/05/20 18:51
Antibiotics)
(Sulfa(Sulfonamide
Antibiotics))
Vital Signs / Labs
-
Vital Signs and Labs:
Temp Pulse Resp BP Pulse Ox
98.1 F 103 18 110/71 91
04/30/25 08:06 04/30/25 08:15 04/30/25 08:06 04/30/25 08:05 04/30/25 08:06
04/30/25 00:30
04/30/25 00:30
04/30/25 04/30/25 04/30/25
00:21 00:30 01:22
WBC 12.5 H
RBC 4.04 L
MCV 105.7 H
MCH 33.7 H
MCHC 31.9 L
PT 15.0 H
BUN 26 H
Glucose 153 H
Troponin I 0.108 H*
Urine Ketones
Urine Albumin
Urine Opiates Screen
Ur Oxycodone Screen
Urine Fentanyl Screen
POC Glucose 128 H
04/30/25 04/30/25
02:15 02:16
WBC
RBC
MCV
MCH
MCHC
PT
BUN
Glucose
Troponin I
Urine Ketones 2+ A
Urine Albumin 2+ A
Urine Opiates Screen Positive H
Ur Oxycodone Screen Positive H
Urine Fentanyl Screen Positive H
POC Glucose
--- NOTE | 2025-04-30 09:50 | CON.CAR ---
Addendum entered and electronically signed by Nick Buck MD 04/30/25 10:45:
I saw and examined the patient independently, and I performed majority of MDM.
The M48/M60 TANK DRIVER's note was reviewed and I agree with the note, with changes/additions as noted below.
Comment: 80 yo female with PMH of HTN admitted after fall and hip fracture, then underwent right hip hemiarthroplasty 04/29/25. A stroke alert was called 04/30/25 early AM. She also had new A fib with RVR. She offers no cardiac complaints. Exam
with RRR, no murmurs, no edema. Tele: A fib-->NSR/ST. Cr 1.0.
New A fib with RVR, paroxysmal. Back in sinus. Transition diltiazem drip to PO diltiazem 120mg daily. CHADS2-VASC = 6 (if CVA). Eventual eliquis 5mg bid, pending neuro eval, and when safe post op.
CVA alert. MRI brain planned for today.
Original Note:
Consultation
Consultation Request
Date/Time Consultation Requested: 04/30/25 4a
Date/Time Consultation Performed: 04/30/25 9a
Requesting Provider: CHRISTI Butterfield
Performing Provider: CHRISTI Macias for Dr. Buck
Reason for Consultation: new onset Afib
Medical History
-
Chief Complaint: mechanical fall/right hip fracture
History of Present Illness:
Mrs. Valero is an 80 yo female with GERD, HTN, depression/anxiety and daily ETOH use, who presented to the ER after a mechanical fall and noted to have a right hip fracture. She is admitted and underwent right hip hemiarthroplasty 04/29/25. A
stroke alert was called 04/30/25 at 0026 due to confusion, right sided weakness and slurred speech. She was noted to have rapid Afib, new onset. Initial head CT was negative, neurology is following, given ASA, Plavix as well. Awaiting brain MRI
today.
Past Medical History
Past Medical History: Other (as above)
Past Surgical History: Orthopedic (right TKA 2011, right hip hemiarthroplasty 04/29/25)
Social History
Tobacco: Former Smoker (quit 10 years ago)
Alcohol: Daily (3 vodka drinks a day (1 bloody [place] in the am and 2 vodka with 7up and [place] in evening), 'a big bottle of vodka a week')
Personal:
Living: With Family
Family History
Family History: Reviewed & Not Pertinent
Allergies / Home Medications
Allergy/AdvReac Type Severity Reaction Status Date / Time
aspirin Allergy Stomach Verified 11/05/20 18:51
pain
azithromycin (From Zithromax) Allergy Unknown Verified 11/05/20 18:51
erythromycin base Allergy 'very Verified 11/05/20 18:51
(Erythromycin Base) sick',
vomiting
Sulfa (Sulfonamide Allergy Rash Verified 11/05/20 18:51
Antibiotics)
(Sulfa(Sulfonamide
Antibiotics))
�Medication �Instructions �Recorded �Confirmed �Type
pantoprazole 40 mg tablet,delayed 40 mg PO DAILYPRN PRN GERD 01/27/16 11/05/20 History
release
amoxicillin 875 mg-potassium 1 tab PO Q12 12 days #24 tabs 11/08/20 Rx
clavulanate 125 mg tablet
Review of Systems
-
History Source: Patient
All other systems: Negative unless noted
Physical Exam
Vital Signs
Temp Pulse Resp BP Pulse Ox
98.1 F 103 18 110/71 91
04/30/25 08:06 04/30/25 08:15 04/30/25 08:06 04/30/25 08:05 04/30/25 08:06
Lab Results
04/30/25 00:30
04/30/25 00:30
Troponin I Cancelled 04/30/25 06:13
Physical Exam
General: Well Developed and Well Nourished
HEENT: Normocephalic and Moist Mucous Membranes
Respiratory: Clear and Non Labored Respirations
Cardiac: S1/S2 and Regular Rhythm
Breast: Deferred by me
GI: Soft, Non Tender and Normal Bowel Sounds
Rectal: Deferred by Provider
Genito-urinary: Clear Urine
Musculoskeletal: No Clubbing, No Cyanosis and No Edema
Skin: Warm and Dry
Neuro: AO x 3
Psych: Calm
Impression / Plan
-
Afib - new onset 04/30/25 at 0030.
- rapid ventricular response 150s, treated with IV Diltiazem.
- now converted back to NSR at 0230.
- stop Diltiazem drip and switch to PO Diltiazem.
- [id number] score is at least 4 -/+ TIA/CVA making score 6, recommend Eliquis 5mg BID.
- will discuss timing of OAC with neurology and ortho.
- check echo.
TIA symptoms - acute right sided weakness, confusion.
- neurology following.
- head CT negative, awaiting brain MRI.
Right hip fracture - after a mechanical fall.
- s/p right hemiarthroplasty 04/29/25.
- per ortho.
- currently on ASA 81mg BID per ortho.
HTN - stable, monitor.
ETOH use - daily vodka, 3 drinks a day.
- she admits to finishing 'a big bottle of vodka' a week.
- monitor.
GERD - stable.
Data Reviewed
-
EKG: Tracing Personally Visualized and interpreted
Labs: Labs Reviewed by me
[2025-04-30 09:59] LABS: Troponin I 0.381 ng/ml
[2025-04-30] MEDS: CARDIZEM CD 120 MG PO (10:03)
--- NOTE | 2025-04-30 10:35 | W.PN.HOSP.TC ---
Today's Communication/Plan
-
Acute stroke like symptoms overnight�CTh with indeterminate age lesion, MRI brain pending, echo with bubble pending. 8
New onset A-fib with RVR, HR controlled now with diltiazem drip, weaned off to oral diltiazem. Pending cardiology/Ortho/neuro recs on anticoagulation timing
PT/OT for postop hip fracture/stroke
Assessment / Plan
Assessment / Plan
80F with HTN, GERD, anxiety/depression, alcohol use disorder, frequent falls, p/w mechanical fall, found to have displaced subcapital right femur fracture.
PLAN:
# Concern for acute CVA
Stroke alert overnight 10/17 AM w/ confusion, slurred speech, Right side weakness and unable to follow commands.
CT head showed age-indeterminate infarct right robertson radiata
When questioned patient mentioned that she has right-sided weakness when she first wakes up, however when pressed she is inconsistent, poor historian.
MRI brain pending
Echo with bubble pending
Neurology consulted appreciate recs
Aspirin/Plavix. Control plan for Eliquis, see below
PT OT ST
Permissive hypertension for 24 to 48 hours
#New onset A-fib with RVR
Rate improved with diltiazem drip
Converting to oral diltiazem
Cardiology consulted, discussed with Dr. Soto, appreciate recs
After MRI results, if no sign of hemorrhage, Dr. Buck, Ortho, and I will discuss optimal timing of Eliquis
# Right displaced subcapital femur fracture-
s/p mechanical fall, no diagnosis of osteoporosis.
Orthopedics consulted, plan for hip arthroplasty
IV Dilaudid and oral oxycodone for pain as needed.
PT and OT post op
# Alcohol use disorder-
Last drink night before admission
Has never stopped drinking alcohol, no withdrawals or intoxication in the past.
Started the patient on MSAS protocol.
IV diazepam as needed per protocol. Far has not received any.
Loading dose of thiamine and folate followed by oral thiamine and folate supplementation ordered.
B CARES consult placed per family's request.
# Hypoventilation likely secondary to pain/NIMCO, currently on 2 L nasal cannula flow.
Wean off oxygen as tolerated, incentive spirometry to prevent postop atelectasis.
STOP-BANG score 6 (high risk NIMCO) - needs outpt sleep study
Monitor postop.
# Essential hypertension-
Not on any medications, patient discontinued taking her amlodipine on outpatient about 2 years ago.
Average blood pressures in outpatient office 130-140/70-90
Started patient on losartan 25 mg with holding parameters. Permissive hypertension as above
# Hyperglycemia on admission-
hemoglobin A1c 5%
No history of diabetes.
# Macrocytosis without anemia-
Likely secondary to chronic alcohol use
Folate and thiamine supplementation.
# Leukocytosis-
Likely reactive from inflammation.
WBC improved to 11.3
# GERD-
On longstanding Protonix outpatient.
Continue Protonix
# Anxiety/depression-
Coping with alcohol
Not compliant with sertraline.
Held sertraline as patient never took it.
# DVT prophylaxis-
lovenox
# CODE STATUS-
DNR
Anticipated Discharge: 24 - 48 hours
Subjective/Interval History
-
Date of Service: April 30, 2025
Overnight events reviewed, patient reports she is chronically had issues first thing in the morning when she wakes up with her right side, states it is because of her knee problems, when pressed about her right arm, patient unclear on whether it is
probably weak or not, somewhat of a poor historian. Denies chest pain, palpitations, shortness of breath. Discussed with Dr. Buck.
I called patient's daughter and granddaughter and updated on plan of care and answered all questions as able.
Objective Data
-
Labs:
Laboratory Results
04/30/25 04/30/25
00:30 01:22
WBC 12.5 H
Hgb 13.6
Hct 42.7
Plt Count 209
PT Cancelled 15.0 H
INR Cancelled 1.12
APTT Cancelled 31.4
Sodium 136
Potassium 4.7
Chloride 103
Carbon Dioxide 24
BUN 26 H
Creatinine 1.0
Glucose 153 H
Calcium 9.0
Vital Signs:
Vital Signs
Temp Pulse Resp BP Pulse Ox
98.1 F 103 18 110/71 91
04/30/25 08:06 04/30/25 08:15 04/30/25 08:06 04/30/25 08:05 04/30/25 08:06
I&O
04/29/25 04/30/25 05/01/25
06:59 06:59 06:59
Intake Total 450 / 450
Output Total 150 / 150
Balance -150 / -150 450 / 450
Review of Systems
-
All other systems: Reviewed and negative
Physical Exam
-
General: No Apparent Distress
HEENT: Moist Mucous Membranes, Anicteric and PERRLA
Respiratory: Clear to Auscultation; Negative Wheezes, Rales or Rhonchi
Cardiac: Regular Rhythm, S1/S2 and Murmur; Negative Rub or Gallop
GI: Soft, Nontender, Nondistended and Normal Bowel Sounds
Musculoskeletal: No Edema
Skin: Warm and Dry; Negative Rash, Ulcers or Lesions
Neuro: Awake and AO x 3
Hematologic / Lymphatic: No Lymphadenopathy
Psych: Calm
Data Reviewed
-
Diagnostic Radiology: Image personally visualized and interpreted (Displaced right hip fracture)
Labs: Labs Reviewed by me and Discussed with Patient
--- NOTE | 2025-04-30 13:20 | CM ---
Reviewed chart. Met with Mrs. Valero and spoke with her daughter Bijal Fonseca via telephone. Prior to admission Mrs. Valero resides with her spouse in a two story home with three steps to enter. She has a first floor main bedroom/full bathroom.
Prior to admission she ambulated with a single point cane and independent with adls. She has a single point cane at home. She has a prescription plan with and uses [facility]. Telephone call to [facility] to check on her co-pay for Eliquis
5 mg po bid. Her co-pay for a 90 day supply via mail order would be $38.00 and a monthly supply via in-network retail pharmacy would be $43.00. We reviewed the recommendations of the medical team of going to some level of inpatient rehab. prior to
returning home. We reviewed acute rehab. and SNF/Rehab. Family is leaning toward going for SNF/Rehab. They would like to explore SNF/Rehab. at [facility]. Telephone call to [facility] Admission to make the referral. Sent the referral.
Medical work-up in progress. The discharge plan is to go to some level of inpatient admission - hopefully [facility] when medically stable.
[2025-04-30] MEDS: ROXICODONE 2.5 MG PO (13:27)
--- NOTE | 2025-04-30 15:47 | PTCARENOTE ---
Bubble study completed with Josette diagnostic radiologic technologist.
--- NOTE | 2025-04-30 15:50 | PTCARENOTE ---
Pt sent to MRI via stretcher, to go to 2S when MRI completed. Report given to ABHISHEK Goldman. Family at bedside made aware, belongings taken to new room by family.
[2025-04-30] MEDS: LOVENOX 40 MG SC (17:41)
[2025-04-30] MEDS: LIPITOR 40 MG PO (17:44)
[2025-04-30 18:43] LABS: Troponin I 0.389 ng/ml
--- NOTE | 2025-04-30 19:34 | PTCARENOTE ---
1720: pt admitted to room. AOx3. c/o of pain Oxy 5 mg administered, static overlay inflated. Placed pt in RLL. dressing intact with scant drainage. , tele monitor, dinner ordered, family in room. bed low, call landa in reach
[2025-04-30] MEDS: DILAUDID 0.5 MG IV (21:47)
[2025-05-01] VITALS (8 sets, daily range): BP systolic 101–126; BP diastolic 50–73; PULSE 96; O2SAT 96
[2025-05-01] MEDS: ROXICODONE 5 MG PO (03:42)
[2025-05-01 06:17] LABS: Hematocrit 37.8 % (37.0-47.0); Hemoglobin 12.2 g/dL (12.0-16.0); Mean Corp Hgb Conc. 32.3 g/dL (33.0-37.0); Mean Corpuscular Volume 105.0 fL (81.0-99.0); Platelet Count 230 10^3/uL (130-400); Red Cell Dist. Width 13.1 % (11.5-14.5)
[2025-05-01 06:45] LABS: Blood Urea Nitrogen 46 mg/dl (7-17); Calcium 8.8 mg/dl (8.4-10.2); Carbon Dioxide 26 mmol/L (22-30); Chloride 101 mmol/L (98-107); Estimated Creatinine Clearance 27 ml/min; Glucose 103 mg/dl (70-99); Potassium 4.4 mmol/L (3.5-5.1); Sodium 133 mmol/L (135-145); eGFR 34.58
[2025-05-01] MEDS: THIAMINE INJECTION 200 MG IV (07:33)
[2025-05-01] MEDS: FOLVITE 1 MG PO (07:35)
[2025-05-01] MEDS: CARDIZEM CD 120 MG PO (07:35)
[2025-05-01] MEDS: PLAVIX 75 MG PO (07:35)
[2025-05-01] MEDS: COLACE 100 MG PO ×2 (07:35→20:51)
[2025-05-01] MEDS: SENOKOT 17.2 MG PO ×2 (07:36→20:51)
[2025-05-01] MEDS: ASPIR LOW (ENTERIC COATED) 81 MG PO ×2 (07:36→20:51)
--- NOTE | 2025-05-01 07:59 | W.PN.HOSP.TC ---
Today's Communication/Plan
-
MRI resulted with multiple small acute infarcts c/w embolic disease and also tiny chronic intraparenchymal microhemorrhages c/w HTN microangiopathy
echo with intrapulmonary shunt but no e/o PFO
HR control
start with BP control when needed
asa/plavix, CT head tomorrow, eventual eliquis
Assessment / Plan
Assessment / Plan
80F with HTN, GERD, anxiety/depression, alcohol use disorder, frequent falls, p/w mechanical fall, found to have displaced subcapital right femur fracture.
PLAN:
# Acute embolic CVA
Stroke alert overnight 10/17 AM w/ confusion, slurred speech, Right side weakness and unable to follow commands.
CT head showed age-indeterminate infarct right robertson radiata
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
Echo with bubble concerning for intrapulmonary shunt, no e/o PFO
Neurology consulted appreciate recs
CT head repeat tomorrow
Aspirin/Plavix. Eventual plan for Eliquis, see below
PT OT ST
Permissive hypertension for 24 to 48 hours - start BP control
#New onset A-fib with RVR
Rate improved with diltiazem drip
Converting to oral diltiazem
Cardiology consulted, discussed plan of care today, appreciate recs
Have discussed with neuro about eliquis in light of microhemorrhages, plan repeat CT head tomorrow, possibly Eliquis after that
# Right displaced subcapital femur fracture-
s/p mechanical fall, no diagnosis of osteoporosis.
Orthopedics consulted, plan for hip arthroplasty
IV Dilaudid discontinued due to sedation, continue oral oxycodone for pain as needed.
PT and OT post op
# Alcohol use disorder-
Last drink night before admission
Has never stopped drinking alcohol, no withdrawals or intoxication in the past.
Started the patient on MSAS protocol.
IV diazepam discontinued as has not received any.
Loading dose of thiamine and folate followed by oral thiamine and folate supplementation ordered.
B CARES consult placed per family's request.
# Hypoventilation likely secondary to pain/NIMCO, currently on 2 L nasal cannula flow.
Wean off oxygen as tolerated, incentive spirometry to prevent postop atelectasis.
STOP-BANG score 6 (high risk NIMCO) - needs outpt sleep study
Monitor postop.
# Essential hypertension-
Not on any medications, patient discontinued taking her amlodipine on outpatient about 2 years ago.
Average blood pressures in outpatient office 130-140/70-90
Started patient on losartan 25 mg with holding parameters, currently on hold as BP is WNL without intervention
# Hyperglycemia on admission-
hemoglobin A1c 5%
No history of diabetes.
# Macrocytosis without anemia-
Likely secondary to chronic alcohol use
Folate and thiamine supplementation.
# Leukocytosis-
Likely reactive from inflammation.
WBC improved to 11.3
# GERD-
On longstanding Protonix outpatient.
Continue Protonix
# Anxiety/depression-
Coping with alcohol
Not compliant with sertraline.
Held sertraline as patient never took it.
# DVT prophylaxis-
lovenox
# CODE STATUS-
DNR
Anticipated Discharge: 24 - 48 hours
Subjective/Interval History
-
Date of Service: May 01, 2025
Patient was asleep when I saw her, but easily arousable. She denies any acute issues overnight. Discussed with nurse. Called and updated daughter by phone.
Objective Data
-
Labs:
Laboratory Results
05/01/25
05:47
WBC 14.5 H
Hgb 12.2
Hct 37.8
Plt Count 230
Sodium 133 L
Potassium 4.4
Chloride 101
Carbon Dioxide 26
BUN 46 H
Creatinine 1.5 H
Glucose 103 H
Calcium 8.8
Vital Signs:
Vital Signs
Temp Pulse Resp BP Pulse Ox
98.0 F 96 16 106/73 97
05/01/25 03:15 05/01/25 03:15 05/01/25 03:15 05/01/25 03:15 05/01/25 03:15
I&O
04/30/25 05/01/25 05/02/25
06:59 06:59 06:59
Intake Total 450 / 450 60 / 60
Balance 450 / 450 60 / 60
Review of Systems
-
All other systems: Reviewed and negative
Physical Exam
-
General: No Apparent Distress
HEENT: Moist Mucous Membranes, Anicteric and PERRLA
Respiratory: Clear to Auscultation; Negative Wheezes, Rales or Rhonchi
Cardiac: Regular Rhythm, S1/S2 and Murmur; Negative Rub or Gallop
GI: Soft, Nontender, Nondistended and Normal Bowel Sounds
Musculoskeletal: No Edema
Skin: Warm and Dry; Negative Rash, Ulcers or Lesions
Neuro: Awake and AO x 3
Hematologic / Lymphatic: No Lymphadenopathy
Psych: Calm
Data Reviewed
-
Diagnostic Radiology: Image personally visualized and interpreted (Displaced right hip fracture)
MRI: Report Reviewed by me (1. MULTIPLE SMALL ACUTE ISCHEMIC INFARCTS in both cerebral hemispheres suggesting ACUTE EMBOLIC DISEASE. 2. 9 mm subacute ischemic infarct in the right frontal lobe robertson radiata. 3. Moderate periventricular white
matter leukoaraiosis in the frontal and parietal lobes. 4. Moderate number of), Discussed with Physician, Discussed with Family and Other (tiny chronic intraparenchymal microhemorrhages in the thalami, posterior parietal lobes, occipital lobes,
and cerebellum most consistent with HYPERTENSIVE MICROANGIOPATHY. 5. Mild diffuse cerebral and cerebellar volume loss.)
Labs: Labs Reviewed by me, Discussed with Patient and Discussed with Family
--- NOTE | 2025-05-01 08:05 | W.PN.ORTHO ---
Today's Communication / Plan
-
Appreciate the primary team, continue Tx
Old CVA and multiple small infarcts noted
Dispo likely SNF, appreciate CM
Continue WBAT B/L LEs on walker
PT/Ot, THPs x 6 weeks
Plavix, Lovenox and 81mg ASA for DVT ppx, or per primary
Pain control, avoid narcs if possible
Dressing to remain 7-10 days, may change as needed
Freddy out 2 weeks (SNF or office)
If freddy out at SNF outpatient Ortho follow-up in 4 weeks
Ortho to sign off for now, please reengage with any pertinent questions as indicated
Assessment
.
Distal Motor Intact: Yes
Dressing:
Clean, dry and intact. Mild, contained, strikethrough
Assessment:
POD#2 Right hip Sanket
Calf soft, nontender
Plan
.
Surgery / Date: Right hip sanket May 08 (Matthew)
DVT Prophylaxis: Aspirin, Lovenox and Other (Plavix)
Activity:
Out of bed. WBAT RLE on walker
PT/OT, THPs x 6 weeks
Discharge Plan: SNF (appreciate CM)
Subjective
.
.:
Patient resting comfortably in bed. No significant right hip complaints
Vital Signs and Labs
.
Vital Signs and Labs:
Lab Results
05/01/25 05:47
05/01/25 05:47
Temp Pulse Resp BP Pulse Ox
98.0 F 96 16 106/73 97
05/01/25 03:15 05/01/25 03:15 05/01/25 03:15 05/01/25 03:15 05/01/25 03:15
PT 15.0 Sec (11.4-14.6) H 04/30/25 01:22
INR 1.12 04/30/25 01:22
[2025-05-01] MEDS: PROTONIX 40 MG PO (08:14)
--- NOTE | 2025-05-01 14:52 | W.PN.CD ---
Today's Communication / Plan
-
PO diltiazem
trend tele
awaiting CT tomorrow, before we can start eliquis
Impression / Plan
-
Afib - new, paroxysmal
-echo: EF 65-70%, mild
- back in sinus: continue PO Diltiazem 120mg daily.
- [id number] score 6, recommend Eliquis
-discussed with neuro: plan for repeat CT tomorrow to look for hemorrhage before starting eliquis
CVA
-acute, severe, threat to life
- plan for f/u CT tomorrow
Right hip fracture - after a mechanical fall.
- s/p right hemiarthroplasty 04/29/25.
- per ortho.
HTN - stable, monitor.
-losartan stopped, now on diltiazem
EVELYN
-trend, losartan stopped
Physical Exam
Vital Signs/Labs
Vital Signs
Temp Pulse Resp BP Pulse Ox
97.8 F 90 18 120/60 92
05/01/25 11:15 05/01/25 11:15 05/01/25 11:15 05/01/25 11:15 05/01/25 11:15
05/01/25 05:47
05/01/25 05:47
PT 15.0 Sec (11.4-14.6) H 04/30/25 01:22
INR 1.12 04/30/25 01:22
APTT 31.4 Sec (23.4-35.0) 04/30/25 01:22
Magnesium 1.8 mg/dl (1.6-2.3) 04/30/25 00:30
TSH Cancelled 04/30/25 06:13
LAB Results
04/30/25 04/30/25 04/30/25
00:30 06:13 09:22
Troponin I 0.108 H* Cancelled 0.381 H*
04/30/25 04/30/25 04/30/25
12:00 15:50 18:00
Troponin I Cancelled Cancelled Cancelled
04/30/25
18:04
Troponin I 0.389 H*
Physical Exam
Constitutional: No acute distress
EENT: Moist mucous membranes
Cardiovascular: Rhythm & rate is regular, Pedal edema is absent, JVD pressure is normal and Systolic murmur present
Respiratory: Respiratory effort normal and Lungs clear to auscul.
Data Reviewed
-
Date of Service: May 01, 2025
EKG: Other (Tele: SR 70s)
Labs: Labs Reviewed by me
[2025-05-01] MEDS: TYLENOL 650 MG PO (15:53)
[2025-05-01] MEDS: LIPITOR 40 MG PO (15:53)
--- NOTE | 2025-05-01 16:56 | W.PN.NEURO.1 ---
Today's Communication / Plan
-
MRI of the brain was done on 04/30/2025 that showed multiple small ischemic infarcts in both cerebral hemispheres suggesting acute embolic disease.
The patient was found to have new onset atrial fibrillation with RVR.
Continue aspirin 81 mg daily, Plavix 75 mg daily for now. The patient was found to be in new atrial fibrillation with rapid ventricular rate. Cardiology has seen the patient and recommended Eliquis. Will repeat a CT of the head in the morning and
if it does not show hemorrhage, we will consider to start Eliquis 5 mg twice daily.
Atorvastatin 40 mg daily.
Subjective/Objective
Subjective Data
Date of Service: May 01, 2025
Today the patient was seen and examined.
The patient is an 80 years old who had a right hip hemiarthroplasty done on 04/29/2025. Stroke alert was called in early am at 0026 on 04/30/2025, because of slurred speech and confusion and noted right-sided weakness. She was found to be in new
onset atrial fibrillation with RVR during the event.
[facility] tel[facility]roke was notified. Recommendation was to load with aspirin and Plavix.
MRI of the brain was done on 04/30/2025 that showed multiple small ischemic infarcts in both cerebral hemispheres suggesting acute embolic disease.
Today, the patient is alert and is oriented x 3, speech is clear. She has a chronic mild right arm weakness as per patient because of her previous stroke and strength examination of the right lower extremity could not be done because of the recent
surgery. The strength in the left upper and lower extremities was grossly 5/5. The cranial nerves II to XII are grossly intact.
MRI of the brain was done on 04/30/2025 that showed multiple small ischemic infarcts in both cerebral hemispheres suggesting acute embolic disease.
The patient was found to have new onset atrial fibrillation with RVR.
Continue aspirin 81 mg daily, Plavix 75 mg daily for now. The patient was found to be in new atrial fibrillation with rapid ventricular rate. Cardiology has seen the patient and recommended Eliquis. Will repeat a CT of the head in the morning and
if it does not show hemorrhage, we will consider to start Eliquis 5 mg twice daily.
Atorvastatin 40 mg daily.
Objective Data
Vital Signs
Temp Pulse Resp BP Pulse Ox
36.9 C 93 18 101/61 93
05/01/25 16:03 05/01/25 16:03 05/01/25 16:03 05/01/25 16:03 05/01/25 16:03
Lab Results
05/01/25 05:47
05/01/25 05:47
PT 15.0 Sec (11.4-14.6) H 04/30/25 01:22
INR 1.12 04/30/25 01:22
APTT 31.4 Sec (23.4-35.0) 04/30/25 01:22
Sodium 133 mmol/L (135-145) L 05/01/25 05:47
Potassium 4.4 mmol/L (3.5-5.1) 05/01/25 05:47
BUN 46 mg/dl (7-17) H 05/01/25 05:47
Glucose 103 mg/dl (70-99) H 05/01/25 05:47
Calcium 8.8 mg/dl (8.4-10.2) 05/01/25 05:47
Phosphorus 3.9 mg/dl (2.5-4.5) 04/28/25 21:59
Ur Buprenorphine Negative (Negative) 04/30/25 02:15
Patient Allergies
aspirin Allergy (Verified 11/05/20 18:51)
Stomach pain
azithromycin (From Zithromax) Allergy (Verified 11/05/20 18:51)
Unknown
erythromycin base (Erythromycin Base) Allergy (Verified 11/05/20 18:51)
'very sick', vomiting
Sulfa (Sulfonamide Antibiotics) (Sulfa(Sulfonamide Antibiotics)) Allergy (Verified 11/05/20 18:51)
Rash
Vital Signs and Labs
-
Vital Signs and Labs:
Vital Signs
Temp Pulse Resp BP Pulse Ox
36.9 C 93 18 101/61 93
05/01/25 16:03 05/01/25 16:03 05/01/25 16:03 05/01/25 16:03 05/01/25 16:03
Lab Results
05/01/25 05:47
05/01/25 05:47
PT 15.0 Sec (11.4-14.6) H 04/30/25 01:22
INR 1.12 04/30/25 01:22
APTT 31.4 Sec (23.4-35.0) 04/30/25 01:22
Sodium 133 mmol/L (135-145) L 05/01/25 05:47
Potassium 4.4 mmol/L (3.5-5.1) 05/01/25 05:47
BUN 46 mg/dl (7-17) H 05/01/25 05:47
Glucose 103 mg/dl (70-99) H 05/01/25 05:47
Calcium 8.8 mg/dl (8.4-10.2) 05/01/25 05:47
Phosphorus 3.9 mg/dl (2.5-4.5) 04/28/25 21:59
Ur Buprenorphine Negative (Negative) 04/30/25 02:15
Medications
-
Active Medications
Generic Name Dose Route Start Last Admin
Trade Name Freq PRN Reason Stop Dose Admin
Acetaminophen 650 mg 05/01/25 10:39 05/01/25 15:53
Acetaminophen 325 Mg Tablet PO 05/29/25 10:38 650 mg
Q4HPRN PRN Administration
headache/fever
Al Hydrox/Mg Hydrox/Simethicone 30 ml 04/29/25 14:10
Mag/Al/Simethicone Suspension 30 Ml Cup PO 05/27/25 14:09
Q4HPRN PRN
INDIGESTION
Aspirin 81 mg 04/29/25 20:00 05/01/25 07:36
Aspirin 81 Mg (Enteric Coated) Tablet PO 05/27/25 19:59 81 mg
BID ANJU Administration
Atorvastatin Calcium 40 mg 04/30/25 18:00 05/01/25 15:53
Atorvastatin (Lipitor) 40 Mg Tablet PO 05/28/25 17:59 40 mg
QPM ANJU Administration
Clopidogrel Bisulfate 75 mg 05/01/25 08:00 05/01/25 07:35
Clopidogrel 75 Mg Tablet PO 05/29/25 07:59 75 mg
DAILY ANJU Administration
Diltiazem HCl 120 mg 04/30/25 10:00 05/01/25 07:35
Diltiazem 120 Mg Extended Release (24 H) Capsule PO 05/28/25 09:59 120 mg
DAILY ANJU Administration
Docusate Sodium 100 mg 04/29/25 20:00 05/01/25 07:35
Docusate Sodium 100 Mg Capsule PO 05/27/25 19:59 100 mg
BID ANJU Administration
Enoxaparin Sodium 40 mg 04/30/25 18:00 04/30/25 17:41
Enoxaparin Sodium 40 Mg/0.4 Ml Syringe SC 05/28/25 17:59 40 mg
On Hold: 05/01/25 13:36 QPM ANJU Administration
Folic Acid 1 mg 04/28/25 20:41 05/01/25 07:35
Folic Acid 1 Mg Tablet PO 05/26/25 20:40 1 mg
DAILY ANJU Administration
Magnesium Hydroxide 30 ml 04/29/25 14:10
Milk Of Magnesia 30 Ml Cup PO 05/27/25 14:09
DAILYPRN PRN
constipation
Ondansetron HCl 4 mg 04/28/25 22:00 04/28/25 22:03
Ondansetron 4 Mg/2 Ml Vial IV 05/26/25 21:59 4 mg
Q6HPRN PRN Administration
nausea/vomiting
Oxycodone HCl 10 mg 04/29/25 14:10
Oxycodone 10 Mg Regular Release Tablet PO 05/13/25 14:09
On Hold: 04/30/25 05:21 Q4HPRN PRN
severe pain
Oxycodone HCl 5 mg 04/29/25 14:10 05/01/25 03:42
Oxycodone 5 Mg Regular Release Tablet PO 05/13/25 14:09 5 mg
Q4HPRN PRN Administration
moderate pain
Oxycodone HCl 2.5 mg 04/29/25 14:10 04/30/25 13:27
Oxycodone 5 Mg Regular Release Tablet PO 05/13/25 14:09 2.5 mg
Q4HPRN PRN Administration
mild pain
Pantoprazole Sodium 40 mg 04/29/25 08:00 05/01/25 08:14
Pantoprazole 40 Mg Delayed Release Tablet PO 05/27/25 07:59 40 mg
DAILY ANJU Administration
Prochlorperazine Maleate 5 mg 04/29/25 14:10
Prochlorperazine 5 Mg Tablet PO 05/27/25 14:09
Q6HPRN PRN
nausea/vomiting
Sennosides 17.2 mg 04/29/25 20:00 05/01/25 07:36
Sennosides (Senokot) 8.6 Mg Tablet PO 05/27/25 19:59 17.2 mg
BID ANJU Administration
Sodium Chloride 0 flush 04/28/25 17:00
Sodium Chloride 0.9% (Flush) Syringe IV 05/26/25 16:59
PER PROTOCOL ANJU
Tamsulosin HCl 0.4 mg 04/29/25 14:10
Tamsulosin 0.4 Mg Capsule PO 05/27/25 14:09
DAILYPRN PRN
bladder scan volume > 400 mL
Thiamine HCl 100 mg 05/01/25 20:00
Thiamine 100 Mg Tablet PO 11/15/25 19:59
BID ANJU
Home Medications
�Medication �Instructions �Recorded
pantoprazole 40 mg tablet,delayed 40 mg PO DAILYPRN PRN GERD 01/27/16
release
amoxicillin 875 mg-potassium 1 tab PO Q12 12 days #24 tabs 11/08/20
clavulanate 125 mg tablet
[2025-05-01] MEDS: VITAMIN B1 100 MG PO (20:51)
[2025-05-02] VITALS (8 sets, daily range): BP systolic 111–148; BP diastolic 56–79; PULSE 81
[2025-05-02] MEDS: TYLENOL 650 MG PO ×3 (04:37→15:49)
[2025-05-02 07:08] LABS: Hematocrit 33.2 % (37.0-47.0); Hemoglobin 10.9 g/dL (12.0-16.0); Mean Corp Hgb Conc. 32.8 g/dL (33.0-37.0); Mean Corpuscular Volume 102.8 fL (81.0-99.0); Platelet Count 181 10^3/uL (130-400); Red Cell Dist. Width 12.9 % (11.5-14.5)
[2025-05-02 07:17] LABS: Blood Urea Nitrogen 53 mg/dl (7-17); Calcium 8.5 mg/dl (8.4-10.2); Carbon Dioxide 26 mmol/L (22-30); Chloride 102 mmol/L (98-107); Estimated Creatinine Clearance 29 ml/min; Glucose 114 mg/dl (70-99); Potassium 4.6 mmol/L (3.5-5.1); Sodium 130 mmol/L (135-145); eGFR 37.56
[2025-05-02] MEDS: ASPIR LOW (ENTERIC COATED) 81 MG PO (07:54)
[2025-05-02] MEDS: VITAMIN B1 100 MG PO ×2 (07:54→20:08)
[2025-05-02] MEDS: PLAVIX 75 MG PO (07:54)
[2025-05-02] MEDS: CARDIZEM CD 120 MG PO (07:54)
[2025-05-02] MEDS: COLACE 100 MG PO ×2 (07:54→20:08)
[2025-05-02] MEDS: SENOKOT 17.2 MG PO ×2 (07:54→20:08)
[2025-05-02] MEDS: PROTONIX 40 MG PO (07:54)
[2025-05-02] MEDS: FOLVITE 1 MG PO (07:55)
--- NOTE | 2025-05-02 10:12 | W.PN.HOSP.TC ---
Today's Communication/Plan
-
CTH with no acute hemorrhage
possibly transition to eliquis tonight if ok with neuro and d/c asa/plavix
SNF on dc
Assessment / Plan
Assessment / Plan
80F with HTN, GERD, anxiety/depression, alcohol use disorder, frequent falls, p/w mechanical fall, found to have displaced subcapital right femur fracture.
PLAN:
# Acute embolic CVA
Stroke alert overnight 10/17 AM w/ confusion, slurred speech, Right side weakness and unable to follow commands.
CT head showed age-indeterminate infarct right robertson radiata
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
Echo with bubble concerning for intrapulmonary shunt, no e/o PFO
Neurology consulted appreciate recs
CT head repeated today, no acute hemorrhage, CT is now showing the small acute R robertson radiata infarct will d./w neuro
Aspirin/Plavix. Eventual plan for Eliquis, see below
PT OT ST
Permissive hypertension complete
#New onset A-fib with RVR
Rate improved with diltiazem drip
Converted to oral diltiazem
Cardiology consulted, discussed plan of care again today, appreciate recs
Plan eliquis tonight and stopping asa/plavix after neuro reviews CTH
# Right displaced subcapital femur fracture-
s/p mechanical fall, no diagnosis of osteoporosis.
Orthopedics consulted, plan for hip arthroplasty
IV Dilaudid discontinued due to sedation/post op delirium, continue oral oxycodone for pain as needed.
PT and OT post op
delirium protocol
#EVELYN
avoid nephrotoxins
d/c losartan
monitor bmp
#hyponatremia
acute, mild, asymptomatic
d/c losartan
check ua/Chavez
may need a little fluid challenge
# Alcohol use disorder-
Last drink night before admission
Has never stopped drinking alcohol, no withdrawals or intoxication in the past.
Started the patient on MSAS protocol. No issues.
IV diazepam discontinued as has not received any.
Loading dose of thiamine and folate followed by oral thiamine and folate supplementation ordered.
B CARES consult placed per family's request.
# Hypoventilation likely secondary to pain/NIMCO, currently on 2 L nasal cannula flow.
Wean off oxygen as tolerated, incentive spirometry to prevent postop atelectasis.
STOP-BANG score 6 (high risk NIMCO) - needs outpt sleep study
Monitor postop.
# Essential hypertension-
Not on any medications, patient discontinued taking her amlodipine on outpatient about 2 years ago.
Average blood pressures in outpatient office 130-140/70-90
Started patient on losartan 25 mg with holding parameters, currently on hold as BP is WNL with just diltiazem
# Hyperglycemia on admission-
hemoglobin A1c 5%
No history of diabetes.
# Macrocytosis without anemia-
Likely secondary to chronic alcohol use
Folate and thiamine supplementation.
# Leukocytosis-
Likely reactive from inflammation.
WBC improved to 11.3
# GERD-
On longstanding Protonix outpatient.
Continue Protonix
# Anxiety/depression-
Coping with alcohol
Not compliant with sertraline.
Held sertraline as patient never took it.
#Hyponatremia
Na 130 n
# DVT prophylaxis-
lovenox on hold, likely eliquis tonight
# CODE STATUS-
DNR
Anticipated Discharge: 24 - 48 hours
Subjective/Interval History
-
Date of Service: May 02, 2025
Pt c/o pain in hip. Just went for [facility]. Daughter at bedside.
Objective Data
-
Labs:
Laboratory Results
05/02/25
06:02
WBC 8.4
Hgb 10.9 L
Hct 33.2 L
Plt Count 181 D
Sodium 130 L
Potassium 4.6
Chloride 102
Carbon Dioxide 26
BUN 53 H
Creatinine 1.4 H
Glucose 114 H
Calcium 8.5
Vital Signs:
Vital Signs
Temp Pulse Resp BP Pulse Ox
98.0 F 98 18 148/72 95
05/02/25 08:00 05/02/25 08:00 05/02/25 08:00 05/02/25 08:00 05/02/25 08:00
I&O
05/01/25 05/02/25 05/03/25
06:59 06:59 06:59
Intake Total 60 / 60 540 / 540
Balance 60 / 60 540 / 540
Review of Systems
-
All other systems: Reviewed and negative
Physical Exam
-
General: No Apparent Distress
HEENT: Moist Mucous Membranes, Anicteric and PERRLA
Respiratory: Clear to Auscultation; Negative Wheezes, Rales or Rhonchi
Cardiac: Regular Rhythm, S1/S2 and Murmur; Negative Rub or Gallop
GI: Soft, Nontender, Nondistended and Normal Bowel Sounds
Musculoskeletal: No Edema
Skin: Warm and Dry; Negative Rash, Ulcers or Lesions
Neuro: Awake and AO x 3
Hematologic / Lymphatic: No Lymphadenopathy
Psych: Calm
Data Reviewed
-
Diagnostic Radiology: Image personally visualized and interpreted (Displaced right hip fracture)
CT Scan: Report Reviewed by me (No acute intracranial hemorrhage. CTH Small acute nonhemorrhagic infarct in the right nicole radiata seen as noted on recent MRI. Additional smaller acute infarcts seen on recent MRI, likely below the limits of
resolution of this study.) and Discussed with Physician
MRI: Report Reviewed by me (1. MULTIPLE SMALL ACUTE ISCHEMIC INFARCTS in both cerebral hemispheres suggesting ACUTE EMBOLIC DISEASE. 2. 9 mm subacute ischemic infarct in the right frontal lobe robertson radiata. 3. Moderate periventricular white
matter leukoaraiosis in the frontal and parietal lobes. 4. Moderate number of), Discussed with Physician, Discussed with Family and Other (tiny chronic intraparenchymal microhemorrhages in the thalami, posterior parietal lobes, occipital lobes,
and cerebellum most consistent with HYPERTENSIVE MICROANGIOPATHY. 5. Mild diffuse cerebral and cerebellar volume loss.)
Labs: Labs Reviewed by me, Discussed with Patient and Discussed with Family
[2025-05-02] MEDS: ROXICODONE 2.5 MG PO ×2 (11:35→18:12)
--- NOTE | 2025-05-02 12:37 | W.PN.CD ---
Today's Communication / Plan
-
no hemorrhage on CT: stop ASA/Plavix, and start eliquis 5mg bid tonight
Impression / Plan
-
Afib - new, paroxysmal
-echo: EF 65-70%, mild
- back in sinus: continue PO Diltiazem 120mg daily.
- [id number] score 6, recommend Eliquis
-no hemorrhage on CT: stop ASA/Plavix, and start eliquis 5mg bid tonight
CVA
-plan as above
Right hip fracture - after a mechanical fall.
- s/p right hemiarthroplasty 04/29/25.
- per ortho.
HTN - stable, monitor.
-losartan stopped, now on diltiazem
EVELYN
-trend, losartan stopped
Mild
-outpatient f/u
Physical Exam
Vital Signs/Labs
Vital Signs
Temp Pulse Resp BP Pulse Ox
97.8 F 84 18 111/68 96
05/02/25 11:08 05/02/25 11:08 05/02/25 11:08 05/02/25 11:08 05/02/25 11:08
05/02/25 06:02
05/02/25 06:02
PT 15.0 Sec (11.4-14.6) H 04/30/25 01:22
INR 1.12 04/30/25 01:22
APTT 31.4 Sec (23.4-35.0) 04/30/25 01:22
Magnesium 1.8 mg/dl (1.6-2.3) 04/30/25 00:30
TSH Cancelled 04/30/25 06:13
LAB Results
04/30/25 04/30/25 04/30/25
00:30 06:13 09:22
Troponin I 0.108 H* Cancelled 0.381 H*
04/30/25 04/30/25 04/30/25
12:00 15:50 18:00
Troponin I Cancelled Cancelled Cancelled
04/30/25
18:04
Troponin I 0.389 H*
Physical Exam
Constitutional: No acute distress
EENT: Moist mucous membranes
Cardiovascular: Rhythm & rate is regular, Pedal edema is absent, JVD pressure is normal and Systolic murmur present
Respiratory: Respiratory effort normal and Lungs clear to auscul.
Data Reviewed
-
Date of Service: May 02, 2025
EKG: Other (Tele: SR, brief SVT)
Labs: Labs Reviewed by me
--- NOTE | 2025-05-02 13:49 | PTCARENOTE ---
pt OOB to chair with heavy 2 assist, 3rd to move bed., having to move right leg for pt and redirect. However, More alert today. TT with Dr. Jimenez regarding B/C increasing, heavy output of urine, Na+ lowering, murmur. Asked to place pure wick
because unable to keep clean at the rate she is urinating and family is requesting changes every 15-30mins. Will remove at earliest ability. restarting Eliquis per cardiology , no bleeding noted in CT repeated today.
[2025-05-02] MEDS: LIPITOR 40 MG PO (15:49)
--- NOTE | 2025-05-02 16:06 | W.PN.NEURO.1 ---
Addendum entered and electronically signed by Robinson Hoffman MD 05/02/25 18:28:
Will sign off. Please call if needed.
Addendum entered and electronically signed by Robinson Hoffman MD 05/02/25 18:26:
If it is OK with Cardiology, may consider a lower dose of eliquis 2.5 mg BID for the first few days, due to recent surgery and multiple acute small ischemic infarcts. The patient is more than 78 years of age and the creatinine is 1.5, due to which
she qualifies for a lower dose of Eliquis which can be used for the first few days, then will repeat CT and increase the dose as needed.
Original Note:
Today's Communication / Plan
-
MRI of the brain was done on 04/30/2025 that showed multiple small ischemic infarcts in both cerebral hemispheres suggesting acute embolic disease.
The patient was found to have new onset atrial fibrillation with RVR.
The plan is to stop aspirin and Plavix and to start the patient on Eliquis. The patient is more than 78 years of age and the creatinine is 1.5, due to which she may qualify for a lower dose of Eliquis.
She will be on atorvastatin 40 mg daily.
Subjective/Objective
Subjective Data
Date of Service: May 02, 2025
MRI of the brain was done on 04/30/2025 that showed multiple small ischemic infarcts in both cerebral hemispheres suggesting acute embolic disease.
The patient was found to have new onset atrial fibrillation with RVR.
The plan is to stop aspirin and Plavix and to start the patient on Eliquis. The patient is more than 78 years of age and the creatinine is 1.5, due to which she may qualify for a lower dose of Eliquis.
She will be on atorvastatin 40 mg daily.
The patient is an 80 years old who had a right hip hemiarthroplasty done on 04/29/2025. Stroke alert was called in early am at 0026 on 04/30/2025, because of slurred speech and confusion and noted right-sided weakness. She was found to be in new
onset atrial fibrillation with RVR during the event.
[place] telestroke was notified. Recommendation was to load with aspirin and Plavix.
MRI of the brain was done on 04/30/2025 that showed multiple small ischemic infarcts in both cerebral hemispheres suggesting acute embolic disease.
Today, the patient is alert and is oriented x 3, speech is clear. She has a chronic mild right arm weakness as per patient because of her previous stroke and strength examination of the right lower extremity could not be done because of the recent
surgery. The strength in the left upper and lower extremities was grossly 5/5. The cranial nerves II to XII are grossly intact.
I had a detailed discussion with the patient's and daughter regarding assessment and the management plan for the patient and they verbalized understanding of our discussion.
Objective Data
Vital Signs
Temp Pulse Resp BP Pulse Ox
36.4 C 91 18 143/79 97
05/02/25 15:14 05/02/25 15:14 05/02/25 15:14 05/02/25 15:14 05/02/25 15:14
Lab Results
05/02/25 06:02
05/02/25 06:02
PT 15.0 Sec (11.4-14.6) H 04/30/25 01:22
INR 1.12 04/30/25 01:22
APTT 31.4 Sec (23.4-35.0) 04/30/25 01:22
Sodium 130 mmol/L (135-145) L 05/02/25 06:02
Potassium 4.6 mmol/L (3.5-5.1) 05/02/25 06:02
BUN 53 mg/dl (7-17) H 05/02/25 06:02
Glucose 114 mg/dl (70-99) H 05/02/25 06:02
Calcium 8.5 mg/dl (8.4-10.2) 05/02/25 06:02
Phosphorus 3.9 mg/dl (2.5-4.5) 04/28/25 21:59
Ur Buprenorphine Negative (Negative) 04/30/25 02:15
Patient Allergies
aspirin Allergy (Verified 11/05/20 18:51)
Stomach pain
azithromycin (From Zithromax) Allergy (Verified 11/05/20 18:51)
Unknown
erythromycin base (Erythromycin Base) Allergy (Verified 11/05/20 18:51)
'very sick', vomiting
Sulfa (Sulfonamide Antibiotics) (Sulfa(Sulfonamide Antibiotics)) Allergy (Verified 11/05/20 18:51)
Rash
Vital Signs and Labs
-
Vital Signs and Labs:
Vital Signs
Temp Pulse Resp BP Pulse Ox
36.4 C 91 18 143/79 97
05/02/25 15:14 05/02/25 15:14 05/02/25 15:14 05/02/25 15:14 05/02/25 15:14
Lab Results
05/02/25 06:02
05/02/25 06:02
PT 15.0 Sec (11.4-14.6) H 04/30/25 01:22
INR 1.12 04/30/25 01:22
APTT 31.4 Sec (23.4-35.0) 04/30/25 01:22
Sodium 130 mmol/L (135-145) L 05/02/25 06:02
Potassium 4.6 mmol/L (3.5-5.1) 05/02/25 06:02
BUN 53 mg/dl (7-17) H 05/02/25 06:02
Glucose 114 mg/dl (70-99) H 05/02/25 06:02
Calcium 8.5 mg/dl (8.4-10.2) 05/02/25 06:02
Phosphorus 3.9 mg/dl (2.5-4.5) 04/28/25 21:59
Ur Buprenorphine Negative (Negative) 04/30/25 02:15
Medications
-
Active Medications
Generic Name Dose Route Start Last Admin
Trade Name Freq PRN Reason Stop Dose Admin
Acetaminophen 650 mg 05/01/25 10:39 05/02/25 15:49
Acetaminophen 325 Mg Tablet PO 05/29/25 10:38 650 mg
Q4HPRN PRN Administration
headache/fever/mild pain
Al Hydrox/Mg Hydrox/Simethicone 30 ml 04/29/25 14:10
Mag/Al/Simethicone Suspension 30 Ml Cup PO 05/27/25 14:09
Q4HPRN PRN
INDIGESTION
Apixaban 5 mg 05/02/25 20:00
Apixaban (Eliquis) 5 Mg Tablet PO 05/30/25 19:59
BID ANJU
Atorvastatin Calcium 40 mg 04/30/25 18:00 05/02/25 15:49
Atorvastatin (Lipitor) 40 Mg Tablet PO 05/28/25 17:59 40 mg
QPM ANJU Administration
Diltiazem HCl 120 mg 04/30/25 10:00 05/02/25 07:54
Diltiazem 120 Mg Extended Release (24 H) Capsule PO 05/28/25 09:59 120 mg
DAILY ANJU Administration
Docusate Sodium 100 mg 04/29/25 20:00 05/02/25 07:54
Docusate Sodium 100 Mg Capsule PO 05/27/25 19:59 100 mg
BID ANJU Administration
Folic Acid 1 mg 04/28/25 20:41 05/02/25 07:55
Folic Acid 1 Mg Tablet PO 05/26/25 20:40 1 mg
DAILY ANJU Administration
Magnesium Hydroxide 30 ml 04/29/25 14:10
Milk Of Magnesia 30 Ml Cup PO 05/27/25 14:09
DAILYPRN PRN
constipation
Ondansetron HCl 4 mg 04/28/25 22:00 04/28/25 22:03
Ondansetron 4 Mg/2 Ml Vial IV 05/26/25 21:59 4 mg
Q6HPRN PRN Administration
nausea/vomiting
Oxycodone HCl 10 mg 04/29/25 14:10
Oxycodone 10 Mg Regular Release Tablet PO 05/13/25 14:09
On Hold: 04/30/25 05:21 Q4HPRN PRN
severe pain
Oxycodone HCl 5 mg 04/29/25 14:10 05/01/25 03:42
Oxycodone 5 Mg Regular Release Tablet PO 05/13/25 14:09 5 mg
Q4HPRN PRN Administration
moderate pain
Oxycodone HCl 2.5 mg 04/29/25 14:10 05/02/25 11:35
Oxycodone 5 Mg Regular Release Tablet PO 05/13/25 14:09 2.5 mg
Q4HPRN PRN Administration
mild pain
Pantoprazole Sodium 40 mg 04/29/25 08:00 05/02/25 07:54
Pantoprazole 40 Mg Delayed Release Tablet PO 05/27/25 07:59 40 mg
DAILY ANJU Administration
Prochlorperazine Maleate 5 mg 04/29/25 14:10
Prochlorperazine 5 Mg Tablet PO 05/27/25 14:09
Q6HPRN PRN
nausea/vomiting
Sennosides 17.2 mg 04/29/25 20:00 05/02/25 07:54
Sennosides (Senokot) 8.6 Mg Tablet PO 05/27/25 19:59 17.2 mg
BID ANJU Administration
Sodium Chloride 0 flush 04/28/25 17:00
Sodium Chloride 0.9% (Flush) Syringe IV 05/26/25 16:59
PER PROTOCOL ANJU
Tamsulosin HCl 0.4 mg 04/29/25 14:10
Tamsulosin 0.4 Mg Capsule PO 05/27/25 14:09
DAILYPRN PRN
bladder scan volume > 400 mL
Thiamine HCl 100 mg 05/01/25 20:00 05/02/25 07:54
Thiamine 100 Mg Tablet PO 05/29/25 19:59 100 mg
BID ANJU Administration
Home Medications
�Medication �Instructions �Recorded
pantoprazole 40 mg tablet,delayed 40 mg PO DAILYPRN PRN GERD 01/27/16
release
amoxicillin 875 mg-potassium 1 tab PO Q12 12 days #24 tabs 11/08/20
clavulanate 125 mg tablet
[2025-05-02] MEDS: ELIQUIS 5 MG PO (20:08)
[2025-05-03] VITALS (7 sets, daily range): BP systolic 93–144; BP diastolic 62–87; PULSE 89; O2SAT 96
[2025-05-03] MEDS: ROXICODONE 2.5 MG PO ×2 (00:27→06:01)
[2025-05-03 06:29] LABS: Hematocrit 36.0 % (37.0-47.0); Hemoglobin 11.5 g/dL (12.0-16.0); Mean Corp Hgb Conc. 31.9 g/dL (33.0-37.0); Mean Corpuscular Volume 106.5 fL (81.0-99.0); Platelet Count 218 10^3/uL (130-400); Red Cell Dist. Width 13.0 % (11.5-14.5)
[2025-05-03 06:46] LABS: Blood Urea Nitrogen 41 mg/dl (7-17); Calcium 8.7 mg/dl (8.4-10.2); Carbon Dioxide 30 mmol/L (22-30); Chloride 103 mmol/L (98-107); Estimated Creatinine Clearance 37 ml/min; Glucose 107 mg/dl (70-99); Potassium 4.9 mmol/L (3.5-5.1); Sodium 136 mmol/L (135-145); eGFR 50.17
[2025-05-03] MEDS: SENOKOT 17.2 MG PO ×2 (08:20→19:52)
[2025-05-03] MEDS: COLACE 100 MG PO ×2 (08:20→19:52)
[2025-05-03] MEDS: MILK OF MAGNESIA 30 ML PO (08:20)
[2025-05-03] MEDS: VITAMIN B1 100 MG PO ×2 (08:20→19:52)
[2025-05-03] MEDS: PROTONIX 40 MG PO (08:20)
[2025-05-03] MEDS: ELIQUIS 5 MG PO ×2 (08:20→19:52)
[2025-05-03] MEDS: FOLVITE 1 MG PO (08:21)
[2025-05-03] MEDS: CARDIZEM CD 120 MG PO (08:21)
--- NOTE | 2025-05-03 08:43 | W.PN.CD ---
Today's Communication / Plan
-
diltiazem 240mg daily, eliquis 5mg bid, atorvastatin 40mg daily
stable from cardiac perspective
we will arrange for outpatient follow up
please call us with additional questions
Impression / Plan
-
Afib - new, paroxysmal
-echo: EF 65-70%, mild
- back in sinus: continue PO Diltiazem, increase to 240mg daily
- [id number] score 6, recommend Eliquis
-continue eliquis 5mg bid tonight
CVA
-plan as above, along with statin
Right hip fracture - after a mechanical fall.
- s/p right hemiarthroplasty 04/29/25.
- per ortho.
HTN - stable, monitor.
-losartan stopped, now on diltiazem
EVELYN: improved
-trend, losartan stopped
Mild
-outpatient f/u
Physical Exam
Vital Signs/Labs
Vital Signs
Temp Pulse Resp BP Pulse Ox
98.1 F 96 18 144/67 95
05/03/25 07:40 05/03/25 08:21 05/03/25 07:40 05/03/25 08:21 05/03/25 07:40
05/03/25 06:08
05/03/25 06:08
PT 15.0 Sec (11.4-14.6) H 04/30/25 01:22
INR 1.12 04/30/25 01:22
APTT 31.4 Sec (23.4-35.0) 04/30/25 01:22
Magnesium 1.8 mg/dl (1.6-2.3) 04/30/25 00:30
TSH Cancelled 04/30/25 06:13
LAB Results
04/30/25 04/30/25 04/30/25
09:22 12:00 15:50
Troponin I 0.381 H* Cancelled Cancelled
04/30/25 04/30/25
18:00 18:04
Troponin I Cancelled 0.389 H*
Physical Exam
Constitutional: No acute distress
EENT: Moist mucous membranes
Cardiovascular: Rhythm & rate is regular, Pedal edema is absent, JVD pressure is normal and Systolic murmur present
Respiratory: Respiratory effort normal and Lungs clear to auscul.
Data Reviewed
-
Date of Service: May 03, 2025
EKG: Other (Tele: SR [id number])
Labs: Labs Reviewed by me
[2025-05-03] MEDS: TYLENOL 650 MG PO (09:42)
--- NOTE | 2025-05-03 10:54 | CM ---
Reviewed the chart notes and spoke with the patient's daughter and granddaughter at the bedside. Family requested referral be sent to [facility], referral sent. CM continues to be available to patient/family and is monitoring medical plan
for needs at discharge.
Plan: Discharge plans will depend on the acceptance of a facility. No auth required.
--- NOTE | 2025-05-03 11:41 | W.PN.HOSP.TC ---
Today's Communication/Plan
-
Medically cleared for discharge to rehab
Assessment / Plan
Assessment / Plan
Impression:
80F with HTN, GERD, anxiety/depression, alcohol use disorder, frequent falls, p/w mechanical fall, found to have displaced subcapital right femur fracture.
Assessment/plan:
Acute embolic CVA
Stroke alert overnight 10 AM w/ confusion, slurred speech, Right side weakness and unable to follow commands.
CT head showed age-indeterminate infarct right robertson radiata
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
Echo with bubble concerning for intrapulmonary shunt, no e/o PFO
Neurology consulted appreciate recs
CT head repeated today, no acute hemorrhage, CT is now showing the small acute R robertson radiata infarct will d./w neuro
Aspirin/Plavix. Eventual plan for Eliquis, see below
PT OT ST
Permissive hypertension completed
05/03
Seen by physical therapy recommended rehab.
Discussed with casework specialist.
Pending discharge
New onset A-fib with RVR
Rate improved with diltiazem drip
Sinus rhythm.
Continue diltiazem to 40 mg daily.
Continue Eliquis 5 mg twice daily.
Right displaced subcapital femur fracture-
s/p mechanical fall, no diagnosis of osteoporosis.
Orthopedics consulted, plan for hip arthroplasty
IV Dilaudid discontinued due to sedation/post op delirium, continue oral oxycodone for pain as needed.
PT and OT post op
delirium protocol
Pending rehab
EVELYN
Creatinine improved
hyponatremia
Resolved
Alcohol use disorder-
Last drink night before admission
Has never stopped drinking alcohol, no withdrawals or intoxication in the past.
Started the patient on MSAS protocol. No issues.
IV diazepam discontinued as has not received any.
Loading dose of thiamine and folate followed by oral thiamine and folate supplementation ordered.
B CARES consult placed per family's request.
Hypoventilation likely secondary to pain/NIMCO, currently on 2 L nasal cannula flow.
Wean off oxygen as tolerated, incentive spirometry to prevent postop atelectasis.
STOP-BANG score 6 (high risk NIMCO) - needs outpt sleep study
Monitor postop.
Essential hypertension-
Not on any medications, patient discontinued taking her amlodipine on outpatient about 2 years ago.
Average blood pressures in outpatient office 130-140/70-90
Controlled with diltiazem
Hyperglycemia on admission-
hemoglobin A1c 5%
No history of diabetes.
Macrocytosis without anemia-
Likely secondary to chronic alcohol use
Folate and thiamine supplementation.
Leukocytosis-
Likely reactive from inflammation.
WBC improved to 11.3
GERD-
On longstanding Protonix outpatient.
Continue Protonix
Anxiety/depression-
Coping with alcohol
Not compliant with sertraline.
Held sertraline as patient never took it.
Hyponatremia
Improved
CODE STATUS: DNR
DVT prophylaxis: Eliquis
Diet: Regular diet
Family communication: Discussed with family at bedside
Disposition: Pending discharge
Total time spent on today's encounter was 55 minutes which included time spent in counseling the patient/family regarding diagnosis and treatment plan as listed above, goals of care, and symptom management. Case was discussed with nursing staff,
specialists, and care coordinators/case management. All labs and imaging personally reviewed by me. Remainder the time spent in detailed review of previous records, lab data, imaging, and other medical provider documentation.
Anticipated Discharge: Today
Subjective/Interval History
-
Date of Service: May 03, 2025
Patient seen and examined at bedside, family at bedside, complaining of hip pain, but otherwise denies chest pain or shortness of breath
Objective Data
-
Labs:
Laboratory Results
05/03/25
06:08
WBC 7.4
Hgb 11.5 L
Hct 36.0 L
Plt Count 218 D
Sodium 136
Potassium 4.9
Chloride 103
Carbon Dioxide 30
BUN 41 H
Creatinine 1.1 H
Glucose 107 H
Calcium 8.7
Vital Signs:
Vital Signs
Temp Pulse Resp BP Pulse Ox
98.1 F 96 18 144/67 95
05/03/25 07:40 05/03/25 08:21 05/03/25 07:40 05/03/25 08:21 05/03/25 07:40
I&O
05/02/25 05/03/25 05/04/25
06:59 06:59 06:59
Intake Total 540 / 540 970 / 970 240 / 240
Balance 540 / 540 970 / 970 240 / 240
Physical Exam
-
General: Well Developed, Well Nourished, No Apparent Distress and Comfortable
HEENT: Normocephalic, Atraumatic, Moist Mucous Membranes, No Ptosis, PERRLA and Nose Appears Normal
Respiratory: Clear to Auscultation and Non Labored Respirations
Cardiac: Regular Rhythm and S1/S2
Breast: Deferred by me
GI: Soft, Nontender, Nondistended and Normal Bowel Sounds
Genito-urinary: No Costovertebral Tender
Musculoskeletal: No Clubbing, No Cyanosis, No Edema and Other (Right hip surgical site is clean)
Skin: Warm
Neuro: Awake, Alert, Oriented, AO x 3 and No Motor Deficits
Psych: Calm
[2025-05-03] MEDS: LIPITOR 40 MG PO (17:36)
[2025-05-03] MEDS: ROXICODONE 5 MG PO (19:53)
[2025-05-04] MEDS: ROXICODONE 5 MG PO ×2 (00:05→05:45)
[2025-05-04 03:15] VITALS: BP 147/77
[2025-05-04 07:51] LABS: Hematocrit 33.0 % (37.0-47.0); Hemoglobin 10.8 g/dL (12.0-16.0); Mean Corp Hgb Conc. 32.7 g/dL (33.0-37.0); Mean Corpuscular Volume 104.8 fL (81.0-99.0); Platelet Count 223 10^3/uL (130-400); Red Cell Dist. Width 13.0 % (11.5-14.5)
[2025-05-04 08:06] LABS: Blood Urea Nitrogen 30 mg/dl (7-17); Calcium 8.4 mg/dl (8.4-10.2); Carbon Dioxide 32 mmol/L (22-30); Chloride 102 mmol/L (98-107); Estimated Creatinine Clearance 41 ml/min; Glucose 109 mg/dl (70-99); Potassium 4.9 mmol/L (3.5-5.1); Sodium 135 mmol/L (135-145); eGFR 56.25
[2025-05-04] MEDS: COLACE 100 MG PO ×2 (08:27→19:20)
[2025-05-04] MEDS: VITAMIN B1 100 MG PO ×2 (08:27→19:20)
[2025-05-04] MEDS: CARDIZEM CD 240 MG PO (08:27)
[2025-05-04] MEDS: SENOKOT 17.2 MG PO ×2 (08:27→19:20)
[2025-05-04] MEDS: ELIQUIS 5 MG PO ×2 (08:27→19:20)
[2025-05-04] MEDS: PROTONIX 40 MG PO (08:27)
[2025-05-04] MEDS: FOLVITE 1 MG PO (08:28)
[2025-05-04 08:45] VITALS: BP 151/82
--- NOTE | 2025-05-04 12:56 | W.PN.HOSP.TC ---
Today's Communication/Plan
-
Patient medically cleared to discharge to rehab once bed available.
Assessment / Plan
Assessment / Plan
Impression:
80F with HTN, GERD, anxiety/depression, alcohol use disorder, frequent falls, p/w mechanical fall, found to have displaced subcapital right femur fracture.
Patient underwent right hip hemiarthroplasty, patient was was stroke alert on April 30 was confusion slurred speech, right-sided weakness, CT head shows age-indeterminate infarction right robertson radiata, MRI brain shows multiple bilateral acute
CVA also patient developed new onset A-fib with RVR, which converted to sinus rhythm with Cardizem drip.
Patient was seen by both neurology and cardiology, currently stable.
Physical still recommending rehab.
Assessment/plan:
Acute embolic CVA
Stroke alert overnight 04/30 AM w/ confusion, slurred speech, Right side weakness and unable to follow commands.
CT head showed age-indeterminate infarct right robertson radiata
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
Echo with bubble concerning for intrapulmonary shunt, no e/o PFO
Neurology consulted appreciate recs
CT head repeated no acute hemorrhage, CT is showing the small acute R robertson radiata infarct will d./w neuro
Aspirin/Plavix. Eventual plan for Eliquis, see below
PT OT ST
Permissive hypertension completed
05/03
Seen by physical therapy recommended rehab.
Discussed with caseworker.
Pending discharge
New onset A-fib with RVR
Rate improved with diltiazem drip
Sinus rhythm.
Continue diltiazem to 40 mg daily.
Continue Eliquis 5 mg twice daily.
Right displaced subcapital femur fracture-
s/p right hip hemiarthroplasty
Follow-up with orthopedics as op.
Pain control
Pending rehab
EVELYN
Creatinine improved
hyponatremia
Resolved
Alcohol use disorder-
Last drink night before admission
Has never stopped drinking alcohol, no withdrawals or intoxication in the past.
Started the patient on MSAS protocol. No issues.
IV diazepam discontinued as has not received any.
Loading dose of thiamine and folate followed by oral thiamine and folate supplementation ordered.
B CARES consult placed per family's request.
Hypoventilation likely secondary to pain/NIMCO, currently on 2 L nasal cannula flow.
Wean off oxygen as tolerated, incentive spirometry to prevent postop atelectasis.
STOP-BANG score 6 (high risk NIMCO) - needs outpt sleep study
Monitor postop.
Essential hypertension-
Not on any medications, patient discontinued taking her amlodipine on outpatient about 2 years ago.
Average blood pressures in outpatient office 130-140/70-90
Controlled with diltiazem
Hyperglycemia on admission-
hemoglobin A1c 5%
No history of diabetes.
Macrocytosis without anemia-
Likely secondary to chronic alcohol use
Folate and thiamine supplementation.
Leukocytosis-
Likely reactive from inflammation.
WBC improved to 11.3
GERD-
On longstanding Protonix outpatient.
Continue Protonix
Anxiety/depression-
Coping with alcohol
Not compliant with sertraline.
Held sertraline as patient never took it.
Hyponatremia
Improved
CODE STATUS: DNR
DVT prophylaxis: Eliquis
Diet: Regular diet
Family communication: Discussed with family at bedside
Disposition: Cleared for Dc
Total time spent on today's encounter was 55 minutes which included time spent in counseling the patient/family regarding diagnosis and treatment plan as listed above, goals of care, and symptom management. Case was discussed with nursing staff,
specialists, and care coordinators/case management. All labs and imaging personally reviewed by me. Remainder the time spent in detailed review of previous records, lab data, imaging, and other medical provider documentation.
Anticipated Discharge: Today
Subjective/Interval History
-
Date of Service: May 04, 2025
Patient seen and examined at bedside, denies any chest pain or shortness of breath, medically cleared for discharge.
Objective Data
-
Labs:
Laboratory Results
05/04/25
07:07
WBC 11.3 H
Hgb 10.8 L
Hct 33.0 L
Plt Count 223
Sodium 135
Potassium 4.9
Chloride 102
Carbon Dioxide 32 H
BUN 30 H
Creatinine 1.0
Glucose 109 H
Calcium 8.4
Vital Signs:
Vital Signs
Temp Pulse Resp BP Pulse Ox
98.2 F 104 18 151/82 95
05/04/25 08:45 05/04/25 08:45 05/04/25 08:45 05/04/25 08:45 05/04/25 08:45
I&O
05/03/25 05/04/25 05/05/25
06:59 06:59 06:59
Intake Total 970 / 970 240 / 240 240 / 240
Balance 970 / 970 240 / 240 240 / 240
Physical Exam
-
General: Well Developed, Well Nourished, No Apparent Distress and Comfortable
HEENT: Normocephalic, Atraumatic, Moist Mucous Membranes, No Ptosis, PERRLA and Nose Appears Normal
Respiratory: Clear to Auscultation and Non Labored Respirations
Cardiac: Regular Rhythm and S1/S2
Breast: Deferred by me
GI: Soft, Nontender, Nondistended and Normal Bowel Sounds
Genito-urinary: No Costovertebral Tender
Musculoskeletal: No Clubbing, No Cyanosis, No Edema and Other (Right hip surgical site is clean)
Skin: Warm
Neuro: Awake, Alert, Oriented, AO x 3 and No Motor Deficits
Psych: Calm
--- NOTE | 2025-05-04 12:59 | PN.CDI ---
CDI
- -
CDI:
Physician Documentation Request
Admit Date: 04/28/25 16:40
Dear Doctor,
Please review the following and provide your response in the progress notes.
Clinical Indicators:
Pt admitted with Right displaced subcapital femur fracture.
05/01 Progress note: 'Acute embolic CVA
Stroke alert overnight 04/30 AM w/ confusion, slurred speech, Right side weakness and unable to follow commands...
New onset A-fib with RVR'
Laboratory Tests
04/30/25 04/30/25 04/30/25
00:30 09:22 18:04
Troponin I 0.108 H* 0.381 H* 0.389 H*
Based on the above, could you clarify in the progress notes, the appropriate diagnosis, if significant, that supports the above lab abnormalities and additional evaluation, monitoring and/or treatment rendered:
Non-ischemic myocardial injury
Insignificant abnormal lab values
Other
Use of terms such as suspected, likely, concern for, or probable (associated with a specific diagnosis that is being evaluated, monitored, or treated as if it exists) are acceptable and can be coded in the inpatient setting, when documented at the
time of discharge.
Thank you,
Megan Irby RN, BSN
CDI Specialist
[place] [employer]
Please use your independent medical judgment in providing your response.
--- NOTE | 2025-05-04 13:13 | W.DCSUMMARY ---
Addendum entered and electronically signed by Joseph Lopez MD 05/04/25 14:05:
Non-ischemic myocardial injury
troponin I
0.108 H*
0.381 H*
0.389 H
Original Note:
Discharge Summary
Discharge Data
Date of Admission: 04/28/25
Date of Discharge: 05/04/25
Total time spent discharging patient (in min): 40
-
Pending Results: No
Hospital Course
Hospital course
80F with HTN, GERD, anxiety/depression, alcohol use disorder, frequent falls, p/w mechanical fall, found to have displaced subcapital right femur fracture.
Patient underwent right hip hemiarthroplasty, patient was was stroke alert on April 30 was confusion slurred speech, right-sided weakness, CT head shows age-indeterminate infarction right robertson radiata, MRI brain shows multiple bilateral acute
CVA also patient developed new onset A-fib with RVR, which converted to sinus rhythm with Cardizem drip.
Patient was seen by both neurology and cardiology, currently stable.
Physical therapy recommending rehab.
During hospitalization patient was treated from the following
Acute embolic CVA
Stroke alert overnight 04/30 AM w/ confusion, slurred speech, Right side weakness and unable to follow commands.
CT head showed age-indeterminate infarct right robertson radiata
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
Echo with bubble concerning for intrapulmonary shunt, no e/o PFO
Neurology consulted appreciate recs
CT head repeated no acute hemorrhage, CT is showing the small acute R robertson radiata infarct will d./w neuro
Aspirin/Plavix. Eventual plan for Eliquis, see below
PT OT ST
Permissive hypertension completed
05/03
Seen by physical therapy recommended rehab.
Discussed with caseworker intake.
Pending discharge
New onset A-fib with RVR
Rate improved with diltiazem drip
Sinus rhythm.
Continue diltiazem to 40 mg daily.
Continue Eliquis 5 mg twice daily.
Right displaced subcapital femur fracture-
s/p right hip hemiarthroplasty
Follow-up with orthopedics as op.
Pain control
Pending rehab
EVELYN
Creatinine improved
hyponatremia
Resolved
Alcohol use disorder-
Last drink night before admission
Has never stopped drinking alcohol, no withdrawals or intoxication in the past.
Started the patient on MSAS protocol. No issues.
IV diazepam discontinued as has not received any.
Loading dose of thiamine and folate followed by oral thiamine and folate supplementation ordered.
B CARES consult placed per family's request.
Hypoventilation likely secondary to pain/NIMCO, currently on 2 L nasal cannula flow.
Wean off oxygen as tolerated, incentive spirometry to prevent postop atelectasis.
STOP-BANG score 6 (high risk NIMCO) - needs outpt sleep study
Monitor postop.
Essential hypertension-
Not on any medications, patient discontinued taking her amlodipine on outpatient about 2 years ago.
Average blood pressures in outpatient office 130-140/70-90
Controlled with diltiazem
Hyperglycemia on admission-
hemoglobin A1c 5%
No history of diabetes.
Macrocytosis without anemia-
Likely secondary to chronic alcohol use
Folate and thiamine supplementation.
Leukocytosis-
Likely reactive from inflammation.
WBC improved to 11.3
GERD-
On longstanding Protonix outpatient.
Continue Protonix
Anxiety/depression-
Coping with alcohol
Not compliant with sertraline.
Held sertraline as patient never took it.
Hyponatremia
Improved
CODE STATUS: DNR
DVT prophylaxis: Eliquis
Diet: Regular diet
Family communication: Discussed with family at bedside
Disposition: Cleared for Dc
Total time spent on today's encounter was 40 minutes which included time spent in counseling the patient/family regarding diagnosis and treatment plan as listed above, goals of care, and symptom management. Case was discussed with nursing staff,
specialists, and care coordinators/case management. All labs and imaging personally reviewed by me. Remainder the time spent in detailed review of previous records, lab data, imaging, and other medical provider documentation.
Anticipated Discharge: Today
Discharge Plan
-
Patient Disposition: Jail/SNF
Discharge Diagnosis/Procedures: Acute embolic CVA.
New onset A-fib with RVR.
Right displaced subcapital femur fracture.
Diet: Regular
Activity: As tolerated
Other Services: PT and OT
Referrals:
PCP [Other] - in less than 1 week
Nick Buck MD [Active, Cardiology] - in two to four weeks
Abdias Castro MD [Active, Orthopedics] - in two to four weeks
Referral Note: [facility] out 2 weeks (SNF or office)
Honorio Yanes MD [Active, Neurology] - in three to four weeks
Prescriptions:
New
atorvastatin 40 mg Tablet
40 mg PO QPM Qty: 0 0RF
acetaminophen 325 mg Tablet
650 mg PO Q4HPRN PRN (Reason: headache/fever/mild pain) Qty: 0 0RF
diltiazem HCl 240 mg Capsule,Extended Release 24hr
240 mg PO DAILY Qty: 0 0RF
docusate sodium 100 mg Capsule
100 mg PO BIDPRN PRN (Reason: Constipation) Qty: 0 0RF
folic acid 1 mg Tablet
1 mg PO DAILY Qty: 0 0RF
thiamine mononitrate (vit B1) 100 mg Tablet
100 mg PO DAILY Qty: 0 0RF
Eliquis 5 mg Tablet
5 mg PO BID Qty: 0 0RF
oxycodone 5 mg Tablet
5 mg PO Q4HPRN PRN (Reason: moderate pain) 1 Days Qty: 5 0RF
Rx Instructions:
0.5 tablet for moderate pain, 1 tablet for sever pain
Changed
pantoprazole 40 MG tablet,delayed release (DR/EC)
40 mg PO DAILY Qty: 0 0RF
Discontinued
amoxicillin-pot clavulanate 1 TABLET tablet
1 tab PO Q12 12 Days Qty: 24 0RF
Rx Instructions:
next dose 11/08 PM
Discharge Orders:
Discharge Patient (As Directed); Ordered 05/04/25
Ordered By: Joseph Lopez
Care Plan Goals
Care Plan Goals:
Problem: Readiness for enhanced knowledge related to diagnosis and treatment plan
Goal: Understand your diagnosis and treatment plan needs, including medications if applicable.
Instructions: Know your diagnosis, underlying causes and treatment plan options, including medications if applicable. Consult with your health care team to learn about your diagnosis and treatment plan, including medications if applicable.
Discharge Date and Time
Print Language: LAO
--- NOTE | 2025-05-04 14:23 | CM ---
Addendum [facility] 05/04/25 14:58:
Bedside visit with pt to make her aware of dc plans
Addendum [facility] 05/04/25 14:58:
Transport at 6:30pm
Dtr aware
Original Note:
CM reviewed pt with attending and pt ready for dc
Be dnot available at [facility] today
Pt accepted for admission to [facility]
Call with dtr/ Bijal and she is in agreement with plan
IMM verbally reviewed over phone and copy emailed to [email or web address]
Update to pt bedside
Transport forms on chart
[facility] requesting transport approx 6pm- awaiting BLS slat pickler time
Discharge Disposition- [facility] via BLS
Phone- [phone] Fax- [phone]
[2025-05-04] MEDS: FLUZONE HIGH-DOSE 2025-26 0.5 ML IM (14:52)
[2025-05-04 15:15] VITALS: BP 114/53
[2025-05-04] MEDS: LIPITOR 40 MG PO (17:28)
[2025-05-04 18:30] VITALS: BP 125/66
[2025-05-04 23:27] VITALS: BP 128/61
--- NOTE | 2025-05-05 02:25 | DOWNTIME ---
There was a [facility] Client [employer] Downtime on 05/05/2025 from 0100 to 05/05/2025 at 0215. Downtime documentation of patient's care, including medication administrations, has been reconciled in the electronic record per guidelines. Refer to the
patient's paper chart under the miscellaneous tab to see printed paper medication records and downtime forms.
[2025-05-05] MEDS: TYLENOL 650 MG PO ×2 (06:05→12:32)
[2025-05-05 07:03] VITALS: BP 108/58
--- NOTE | 2025-05-05 08:59 | CM ---
spoke with antia Appiah [phone] regarding discharge today to [facility]
spoke with Ronda liarip - request 11am transport - dtr aware
notified insulation power unit tender
PLAN: [facility]
Phone- [phone] Fax- [phone]
transportation forms on chart, 12:30 set up (notified liaison & dtr)
[2025-05-05] MEDS: CARDIZEM CD 240 MG PO (09:28)
[2025-05-05] MEDS: SENOKOT 17.2 MG PO (09:28)
[2025-05-05] MEDS: VITAMIN B1 100 MG PO (09:28)
[2025-05-05] MEDS: PROTONIX 40 MG PO (09:29)
[2025-05-05] MEDS: FOLVITE 1 MG PO (09:29)
[2025-05-05] MEDS: COLACE 100 MG PO (09:29)
[2025-05-05] MEDS: ELIQUIS 5 MG PO (09:29)
--- NOTE | 2025-05-05 09:54 | PTCARENOTE ---
Stroke packet discussed with pt and given. Daughter at bedside. Care ongoing.
--- NOTE | 2025-05-05 11:14 | W.PN.UPDATE ---
Update Note
Progress Note Update
Patient has a discharge order from yesterday but could not be transported yesterday but she will be transferred today and she is going to acute rehab today on 05/05/2025.
No changes from discharge summary from yesterday.
Seen and examined and daughter at bedside today.
No new compolaints
P/E:
Heart regular rate and rhythm S1-S2 no murmurs.
Lungs clear to auscultation bilateral.
Neuro alert and oriented x 3 cranial nerves are intact and strength normal aside from right lower extremity due to recent hip surgery and mild chronic right arm weakness. Generalized weakness present.
Discussed with RN as well.
A/P:
Can proceed to discharge as planned.
[2025-05-05 11:35] VITALS: BP 119/48
== END 2025-05-05 13:19 | DRG 521 ==
LOC: 2 SOUTH 16:40
PROVIDERS: General Practice; Nurse Practitioner; Nurse Practitioner Gerontology; Student in an Organized Health Care Education/Training Program; ADMITTING PHYSICIAN Internal Medicine; ATTENDING PHYSICIAN Hospitalist; CONSULT PHYSICIAN Orthopaedic Surgery; CONSULT PHYSICIAN Psychiatry & Neurology Neurology; EMERGENCY PHYSICIAN Student in an Organized Health Care Education/Training Program; OTHER PHYSICIAN Internal Medicine
PROC: 0SRR0J9 Replacement of Right Hip Joint, Femoral Surface with Synthetic Substitute, Cemented, Open Approach (ICD-10-PCS; 2025-04-29)
PROC: 3E02340 Introduction of Influenza Vaccine into Muscle, Percutaneous Approach (ICD-10-PCS; 2025-05-04)
DX: S72.011A Unspecified intracapsular fracture of right femur, initial encounter for closed fracture (principal); I63.49 Cerebral infarction due to embolism of other cerebral artery; G81.91 Hemiplegia, unspecified affecting right dominant side; N17.9 Acute kidney failure, unspecified; E87.1 Hypo-osmolality and hyponatremia; I5A Non-ischemic myocardial injury (non-traumatic); I10 Essential (primary) hypertension; K21.9 Gastro-esophageal reflux disease without esophagitis; F32.A Depression, unspecified; F41.9 Anxiety disorder, unspecified; G47.33 Obstructive sleep apnea (adult) (pediatric); F10.10 Alcohol abuse, uncomplicated; G89.29 Other chronic pain; R73.9 Hyperglycemia, unspecified; M54.50 Low back pain, unspecified; I48.91 Unspecified atrial fibrillation; R29.6 Repeated falls; R06.89 Other abnormalities of breathing; D75.89 Other specified diseases of blood and blood-forming organs; R47.81 Slurred speech; D72.829 Elevated white blood cell count, unspecified; W01.198A Fall on same level from slipping, tripping and stumbling with subsequent striking against other object, initial encounter; Y93.01 Activity, walking, marching and hiking; Y92.512 Supermarket, store or market as the place of occurrence of the external cause; Z66 Do not resuscitate; Z96.651 Presence of right artificial knee joint; Z87.891 Personal history of nicotine dependence; Z90.49 Acquired absence of other specified parts of digestive tract; Z88.1 Allergy status to other antibiotic agents; Z88.2 Allergy status to sulfonamides; Z88.8 Allergy status to other drugs, medicaments and biological substances; Z91.199 Patient's noncompliance with other medical treatment and regimen due to unspecified reason; Z88.6 Allergy status to analgesic agent; Z23 Encounter for immunization; Z86.73 Personal history of transient ischemic attack (TIA), and cerebral infarction without residual deficits
CPT/HCPCS: 0042T; 70450; 70496; 70498; 70551; 73502; 80048; 80053; 80306; 80307; 81003; 81015; 82010; 82077; 82962; 82977; 83036; 83735; 84100; 84443; 84484; 85025; 85027; 85610; 85730; 86850; 86900; 86901; 90662; 93005; 93306; 96374; 96375; 97110; 97116; 97129; 97163; 97167; 97168; 97530; 97535; 99285; C1713; C1776; G0008; Q9967